=== PATIENT | male | born 1955 | race American Indian/Alaskan Native ===

== ENCOUNTER 2017-12-25 11:04 | Emergency (ER) | payer MEDICAID, OTHER ==
[2017-12-25 11:15] VITALS: RESP 18; TEMP 98.5
[2017-12-25 11:32] VITALS: O2SAT 100
[2017-12-25] MEDS: Albuterol-Ipratrop 3 mg / 0.5 (3 ml) UD IH SCH ×3 (11:45→12:09)
--- NOTE | 2017-12-25 11:55 | ED PDOC ---
Addendum entered and electronically signed by Faith Tovar PA-C 12/25/17 22:06: Addendum Addendum: Pts BP down to 138/94, comfortable with discharge home with instructions to followup. Original Note: Arrival/HPI - General Historian: Patient - History of Present Illness Narrative History of Present Illness (Text): 12/25/17 12:00 62 y/o male with PMH of asthma and COPD presents to the ED c/o wheezing x 5 days. Associated sinus congestion and dry cough worse at night. Pt had a cold but ran out of his inhaler a few days ago. Pt has never been hospitalized or intubated for his asthma. Denies fevers, chills, sputum, chest pain, palpitations, syncope, sore throat, ear pain, abdominal pain, N/V, diarrhea. <Faith Tovar - Last Filed: 12/25/17 13:57> <Shahram Love - Last Filed: 12/25/17 14:56> - General Chief Complaint: Shortness Of Breath Time Seen by Provider: 12/25/17 11:16 Past Medical History - Provider Review Nursing Documentation Reviewed: Yes - Cardiac Hx Cardiac Disorders: No - Pulmonary Hx Asthma: Yes Hx Chronic Obstructive Pulmonary Disease (COPD): Yes - Neurological Hx Neurological Disorder: No - HEENT Hx HEENT Disorder: No - Renal Hx Renal Disorder: No - Endocrine/Metabolic Hx Endocrine Disorders: No - Hematological/Oncological Hx Blood Disorders: No - Integumentary Hx Dermatological Disorder: No - Musculoskeletal/Rheumatological Hx Musculoskeletal Disorders: No - Gastrointestinal Hx Gastrointestinal Disorders: No - Genitourinary/Gynecological Hx Genitourinary Disorders: No - Psychiatric Hx Psychophysiologic Disorder: No Hx Substance Use: No - Surgical History Other/Comment: A lump removal from forehead <Faith Tovar - Last Filed: 12/25/17 13:57> Family/Social History - Physician Review Nursing Documentation Reviewed: Yes Family/Social History: Unknown Family HX Smoking Status: Current Some Days Smoker Hx Alcohol Use: Yes Frequency of alcohol use: Socially Hx Substance Use: No <Faith Tovar - Last Filed: 12/25/17 13:57> Allergies/Home Meds <Faith Tovar - Last Filed: 12/25/17 13:57> <Shahram Love - Last Filed: 12/25/17 14:56> Allergies/Adverse Reactions: Allergies lisinopril Allergy (Verified 12/25/17 11:15) COUGH Home Medications: Home Meds Medication Instructions Recorded Confirmed Albuterol Sulfate [Ventolin Hfa] 2 puff NEB Q6 PRN 12/25/17 12/25/17 Review of Systems - Physician Review All systems were reviewed & negative as marked: Yes - Review of Systems Constitutional: Normal. absent: Fatigue, Fevers, Night Sweats Eyes: Normal. absent: Vision Changes, Photophobia, Eye Pain ENT: Sinus Congestion. absent: Hearing Changes, Tinnitus, Sore Throat, Rhinorrhea, Epistaxis Respiratory: SOB, Cough, Wheezing. absent: Sputum Cardiovascular: Normal. absent: Chest Pain, Palpitations, STRAUSS, Syncope Gastrointestinal: Normal. absent: Abdominal Pain, Stool Changes, Constipation, Diarrhea, Nausea, Vomiting, Appetite Changes Musculoskeletal: Normal. absent: Arthralgias, Back Pain, Neck Pain, Joint Swelling Skin: Normal. absent: Rash Neurological: Normal. absent: Headache, Dizziness, Focal Weakness, Gait Changes Endocrine: Normal. absent: Diaphoresis Hemo/Lymphatic: Normal. absent: Adenopathy Psychiatric: Normal. absent: Anxiety, Depression, Suicidal Ideation <Faith Tovar - Last Filed: 12/25/17 13:57> Physical Exam Vital Signs Reviewed: Yes Vital Signs Temp Pulse Resp BP Pulse Ox 12/25/17 11:24 89 18 100 12/25/17 11:16 18 12/25/17 11:11 98.5 F 83 18 120/73 97 Temperature: Afebrile Blood Pressure: Normal Pulse: Regular Respiratory Rate: Normal Appearance: Positive for: Well-Appearing, Non-Toxic, Uncomfortable (wheezing) Pain Distress: None Mental Status: Positive for: Alert and Oriented X 3 - Systems Exam Head: Present: Atraumatic, Normocephalic Pupils: Present: PERRL Extroacular Muscles: Present: EOMI Conjunctiva: Present: Normal Mouth: Present: Moist Mucous Membranes Pharnyx: Present: Normal. No: ERYTHEMA, EXUDATE, Muffled/Hoarse Voice, Soft Palate/Uvular Edema Nose (External): Present: Atraumatic Nose (Internal): Present: Normal Inspection, No Active Bleeding, Moist Neck: Present: Normal Range of Motion. No: Meningeal Signs, MIDLINE TENDERNESS Respiratory/Chest: Present: Wheezes, Decreased Breath Sounds. No: Respiratory Distress Cardiovascular: Present: Regular Rate and Rhythm, Normal S1, S2. No: Murmurs Back: Present: Normal Inspection. No: Midline Tenderness, Paraspinal Tenderness Upper Extremity: Present: Normal Inspection, Normal ROM, NORMAL PULSES, Neurovascularly Intact. No: Cyanosis, Edema, Tenderness, Swelling, Erythema, Temperature Abnormalties, Deformity Lower Extremity: Present: Normal Inspection. No: Edema Neurological: Present: GCS=15, CN II-XII Intact, Speech Normal Skin: Present: Warm, Dry, Normal Color. No: Rashes Psychiatric: Present: Alert, Oriented x 3, Normal Insight, Normal Concentration, Normal Affect <Faith Tovar - Last Filed: 12/25/17 13:57> Vital Signs Temp Pulse Resp BP Pulse Ox 12/25/17 11:24 89 18 100 12/25/17 11:16 18 12/25/17 11:11 98.5 F 83 18 120/73 97 <Shahram Love - Last Filed: 12/25/17 14:56> Medical Decision Making ED Course and Treatment: 12/25/17 11:56 Initial Plan: --duoneb x 3 --prednisone 60mg PO --CXR --observe, reassess On discharge, pts BP found to be elevated at 191/113 L arm. Pt not cleared for discharge. Will recheck BP in 20minutes. BP continues to be elevated, pt admits to history of HTN. Pt was previously on 0.2mg clonidine daily, prescribed by a clinic in [place], but ran out of the medicine a few weeks ago. Pt is asymptomatic. Denies headache, chest pain, palpitations, dizziness, SOB, abdominal pain. Case discussed with Dr. Love who saw and evaluated pt. Per Dr. Love, will give pt 0.2mg PO Clonidine here and recheck BP with 7 day prescription and instructions to followup with clinic within 2 days. Impression: Asthma Exacerbation Plan: --ventolin inhaler --nebulizer with albuterol --prednisone --clonidine --followup with primary doctor within 2 days --return to ED for new, worsening symptoms Re-evaluation Time: 12:30 Reassessment Condition: Improved - RAD Interpretation Radiology Orders: 12/25/17 11:44 CXR [CHEST TWO VIEWS (PA/LAT)] [RAD] Stat - Medication Orders Current Medication Orders: Albuterol/Ipratropium (Duoneb 3 Mg/0.5 Mg (3 Ml) Ud) 3 ml IH Q15M JENNIFER Stop: 12/25/17 12:16 Discontinued Medications Prednisone (Prednisone Tab) 60 mg PO STAT ONE Stop: 12/25/17 11:26 Last Admin: 12/25/17 11:43 Dose: 60 mg <Faith Tovar - Last Filed: 12/25/17 13:57> - RAD Interpretation Radiology Orders: 12/25/17 11:44 CXR [CHEST TWO VIEWS (PA/LAT)] [RAD] Stat Chest 2 view shows no infiltrate effusion or cardiomegaly. Mc Kay Stitcher: ED Physician - Medication Orders Current Medication Orders: Albuterol/Ipratropium (Duoneb 3 Mg/0.5 Mg (3 Ml) Ud) 3 ml IH Q15M [facility] Stop: 12/25/17 12:16 Last Admin: 12/25/17 12:09 Dose: 3 ml Discontinued Medications Prednisone (Prednisone Tab) 60 mg PO STAT ONE Stop: 12/25/17 11:26 Last Admin: 12/25/17 11:43 Dose: 60 mg <Shahram Love - Last Filed: 12/25/17 14:56> - PA / [employer] OFFICER / Resident Statement / has examined the patient and agrees with the treatment plan. <Sahhram Love - Last Filed: 12/25/17 14:56> Disposition/Present on Arrival - Present on Arrival Any Indicators Present on Arrival: No History of DVT/PE: No History of Uncontrolled Diabetes: No Urinary Catheter: No History of Decub. Ulcer: No History Surgical Site Infection Following: None - Disposition Have Diagnosis and Disposition been Completed?: Yes Disposition Time: 12:30 Patient Plan: Discharge <Faith Tovar - Last Filed: 12/25/17 13:57> <Shahram Love - Last Filed: 12/25/17 14:56> - Disposition Diagnosis: Asthma exacerbation Disposition: HOME/ ROUTINE Condition: IMPROVED Discharge Instructions (ExitCare): Asthma in Adults Additional Instructions: Take prednisone 2 pills every morning for 4 days Use albuterol inhaler 2 puffs or nebulizer every 6 hours as needed for cough Followup with primary doctor within 2 days Return to ED for new or worsening symptoms Prescriptions: RX: Albuterol 0.083% [Albuterol 0.083% Inhal Danita (2.5 mg/3 ml) UD] 3 ml IH Q6H PRN #30 neb PRN Reason: asthma RX: cloNIDine [Catapres] 0.2 mg PO DAILY #7 tab RX: Nebulizer and Compressor [Comp-Air Nebulizer System] 1 each MC Q6H PRN #1 each PRN Reason: asthma RX: predniSONE [predniSONE Tab] 20 mg PO DAILY 4 Days #8 tab RX: Albuterol HFA [Ventolin HFA 90 mcg/actuation (8 g)] 2 puff IH [id number] PRN #60 puff PRN Reason: asthma Referrals: Magi Rodriguez MD [Medical Doctor] - Follow up with primary Forms: [email or web address] ([place] Islander)
--- NOTE | 2017-12-25 12:37 | RAD ---
Date of service: 12/25/2017 HISTORY: cough r/o PNA COMPARISON: No prior. TECHNIQUE: Chest PA and lateral FINDINGS: LUNGS: Hyperinflation, manifestations of COPD. No active pulmonary disease. PLEURA: No significant pleural effusion identified. No pneumothorax apparent. CARDIOVASCULAR: No atherosclerotic calcification present No radiographic findings to suggest acute or significant cardiovascular disease. OSSEOUS STRUCTURES: No significant abnormalities. VISUALIZED UPPER ABDOMEN: Normal. OTHER FINDINGS: None. IMPRESSION: No active disease. No significant interval change compared to the prior examination(s).
[2017-12-25 13:58] VITALS: BP 138/94; PULSE 66
== END 2017-12-25 13:59 | disposition home or self-care (01) ==
LOC: ED 11:04
DX: J45.901 Unspecified asthma with (acute) exacerbation (principal)

== ENCOUNTER 2018-02-11 17:59 | Emergency (ER) | payer MEDICAID ==
[2018-02-11 18:09] VITALS: BMI 20.2
[2018-02-11 18:17] VITALS: TEMP 98.1
--- NOTE | 2018-02-11 18:42 | ED PDOC ---
Arrival/HPI - General Chief Complaint: Shortness Of Breath Time Seen by Provider: 02/11/18 18:02 Historian: Patient - History of Present Illness Narrative History of Present Illness (Text): 02/11/18 18:35 A 62 year old male, whose past medial history includes asthma, presents to the emergency department with a complaint of 3 week duration shortness of breath and coughing. The patient notes that the last time we has on steroids was 3 weeks ago. The patient notes that he is a smoker. The patient denies fevers, chills, headache, dizziness, chest pain, dyspnea on exertion, abdominal pain, nausea, vomiting, diarrhea, back pain, neck pain, urinary/bowel changes, or any other complaint. PMD: Dr. Rae Time/Duration: Other (3 weeks) Symptom Onset: Sudden Symptom Course: Unchanged Activities at Onset: Rest, Light Context: Home Past Medical History - Provider Review Nursing Documentation Reviewed: Yes - Infectious Disease Hx of Infectious Diseases: None - Cardiac Hx Cardiac Disorders: No - Pulmonary Hx Respiratory Disorders: Yes Hx Asthma: Yes Hx Chronic Obstructive Pulmonary Disease (COPD): Yes - Neurological Hx Neurological Disorder: No - HEENT Hx HEENT Disorder: No - Renal Hx Renal Disorder: No - Endocrine/Metabolic Hx Endocrine Disorders: No - Hematological/Oncological Hx Blood Disorders: No - Integumentary Hx Dermatological Disorder: No - Musculoskeletal/Rheumatological Hx Musculoskeletal Disorders: No - Gastrointestinal Hx Gastrointestinal Disorders: No - Genitourinary/Gynecological Hx Genitourinary Disorders: No - Psychiatric Hx Psychophysiologic Disorder: No Hx Substance Use: No - Surgical History Other/Comment: A lump removal from forehead Family/Social History - Physician Review Nursing Documentation Reviewed: Yes Family/Social History: No Known Family HX Smoking Status: Current Some Days Smoker Hx Alcohol Use: Yes Hx Substance Use: No Allergies/Home Meds Allergies/Adverse Reactions: Allergies banana Allergy (Verified 02/11/18 18:21) ANAPHYLAXIS lisinopril Allergy (Verified 12/25/17 11:15) COUGH Home Medications: Home Meds Medication Instructions Recorded Confirmed Albuterol Sulfate [Ventolin Hfa] 2 puff NEB Q6 PRN 12/25/17 02/11/18 Review of Systems - Physician Review All systems were reviewed & negative as marked: Yes - Review of Systems Constitutional: absent: Fevers Respiratory: SOB, Cough Cardiovascular: absent: Chest Pain, STRAUSS Gastrointestinal: absent: Abdominal Pain, Stool Changes, Diarrhea, Nausea, Vomiting Genitourinary Male: absent: Urinary Output Changes Musculoskeletal: absent: Back Pain, Neck Pain Neurological: absent: Headache, Dizziness Physical Exam Vital Signs Reviewed: Yes Vital Signs Temp Pulse Resp BP Pulse Ox 02/11/18 18:16 98.1 F 102 H 22 187/122 H 93 L Temperature: Afebrile Blood Pressure: Hypertensive Pulse: Tachycardic Respiratory Rate: Normal Appearance: Positive for: Well-Appearing, Non-Toxic, Comfortable Pain Distress: None Mental Status: Positive for: Alert and Oriented X 3 - Systems Exam Head: Present: Atraumatic, Normocephalic Pupils: Present: PERRL Extroacular Muscles: Present: EOMI Conjunctiva: Present: Normal Mouth: Present: Moist Mucous Membranes Neck: Present: Normal Range of Motion Respiratory/Chest: Present: Clear to Auscultation, Good Air Exchange, Wheezes (Inspiratory and expiratory wheezeing in the prolonged expiratory phase. Wheezes throughout.), Other (Patient speaking full sentences. ). No: Respiratory Distress, Accessory Muscle Use Cardiovascular: Present: Regular Rate and Rhythm, Normal S1, S2. No: Murmurs Abdomen: No: Tenderness, Distention, Peritoneal Signs Back: Present: Normal Inspection Upper Extremity: Present: Normal Inspection. No: Cyanosis, Edema Lower Extremity: Present: Normal Inspection. No: Edema Neurological: Present: GCS=15, CN II-XII Intact, Speech Normal Skin: Present: Warm, Dry, Normal Color. No: Rashes Psychiatric: Present: Alert, Oriented x 3, Normal Insight, Normal Concentration Medical Decision Making ED Course and Treatment: 02/11/18 18:44 Impression: A 62 year old female male presents to the emergency department with a complaint of 3 week duration shortness of breath and coughing. Plan: -- EKG -- Chest X-ray -- Labs -- Duoneb and SOLU- Medrol -- Reassess and disposition Prior Visits: Notes and results from previous visits were reviewed. Progress Notes: EKG: Ordered, reviewed, and independently interpreted the EKG. Rate : 108 BPM Rhythm : Sinus tachycardia Interpretation : Normal interval. Normal axis. No ST elevations or depressions. 02/11/18 19:38: Chest X-ray read and interpreted by me shows NAD 02/11/18 19:48: Re- examined patient and he notes that he has not been taking Clonidine 0.2 for the past 3 weeks. Patient is using accessory muscles, supra clavicular. Lungs have not improved and notes he does not feel better. Patient's oxygen saturation is normal. Admission was advised, but patient wants to leave against medical advice. Prescriptions for prednisone and refill of Clonidine provided to patient. 02/11/18 20:50 Leaving Against Medical Advice (AMA): The patient is choosing to leave against medical advice. I have personally explained to the patient that choosing to do so may result in permanent bodily harm or . I have discussed at great length that without further evaluation and monitoring there may be unforeseen circumstances and/or deterioration causing permanent bodily harm or as a result of their choice. The patient is alert, oriented, and shows the mental capacity to make clear decisions regarding the patients health care at this time. The patient continues to wish to leave against medical advice. In light of the patients decision to leave against medical advice, follow-up has been arranged and the patient is aware of the importance to following up as instructed. The patient has been advised that they should return to the emergency room immediately if they change their mind at any time, or if their condition begins to change or worsen in any way. - Lab Interpretations I have reviewed the lab results: Yes - EKG Interpretation Interpreted by ED Physician: Yes Type: 12 lead EKG - Scribe Statement The provider has reviewed the documentation as recorded by the Susannahibanalilia Abreu Provider Scribe Attestation: All medical record entries made by the Scribe were at my direction and personally dictated by me. I have reviewed the chart and agree that the record accurately reflects my personal performance of the history, physical exam, medical decision making, and the department course for this patient. I have also personally directed, reviewed, and agree with the discharge instructions and d isposition. Disposition/Present on Arrival - Present on Arrival Any Indicators Present on Arrival: No History of DVT/PE: No History of Uncontrolled Diabetes: No Urinary Catheter: No History of Decub. Ulcer: No History Surgical Site Infection Following: None - Disposition Have Diagnosis and Disposition been Completed?: Yes Diagnosis: Asthma exacerbation, Noncompliance with medication regimen, Medication refill, Hypertension, Left against medical advice Disposition: AGAINST MEDICAL ADVICE Disposition Time: 20:43 Patient Plan: Discharge (AMA) Condition: STABLE Discharge Instructions (ExitCare): Asthma, Adult (DC), High Blood Pressure (DC), Leaving Against Medical Advice Additional Instructions: MARCO MARVIN, thank you for letting us take care of you today. Your provider was Nichelle Posada MD and you were treated for ASTHMA/SOB. The emergency medical care you received today was directed at your acute symptoms. If you were prescribed any medication, please fill it and take as directed. It may take several days for your symptoms to resolve. Return to the Emergency Department if your symptoms worsen, do not improve, or if you have any other problems. Please contact your doctor tomorrow for a follow up visit. Bring any paperwork you were given at discharge with you along with any medications you are taking to your follow up visit. Our treatment cannot replace ongoing medical care by a primary care provider outside of the emergency department. Thank you for allowing the [facility] team to be part of your care today. If you had an X-Ray or CT scan: A Radiologist will review the ED reading if any change in treatment is needed we will contact you. If you had a blood, urine, or wound culture: It will take several days for the results, if any change in treatment is needed we will contact you. If you had an STI test: It will take 48 hours for the results. Please call after 1 week if you have not heard back. Prescriptions: RX: cloNIDine [Catapres] 0.2 mg PO DAILY #14 tab predniSONE [Prednisone] 40 mg PO DAILY #10 tab Forms: [employer] ([place]ian)
[2018-02-11] MEDS: Albuterol-Ipratrop 3 mg / 0.5 (3 ml) UD IH SCH ×3 (18:44→19:29)
[2018-02-11 18:58] LABS: BASO # 0.07 K/mm3 (0.0-2.0); BASO % 1.2 % (0.0-3.0); EOS # 0.6 (0.0-0.7); EOS % 9.1 % (1.5-5.0); GRAN # 2.5 (1.4-6.5); GRAN % 41.2 % (50.0-68.0); HEMOGLOBIN 13.9 g/dL (14.0-18.0); LYMPH # 2.4 (1.2-3.4); LYMPH % 40.2 % (22.0-35.0); MEAN CELL VOLUME 89.2 fl (80.0-105.0); MEAN CORPUSCULAR HEMOGLOBIN 30.1 pg (25.0-35.0); MEAN CORPUSCULAR HGB CONC 33.7 g/dl (31.0-37.0); MEAN PLATELET VOLUME 9.1 fl (7.0-11.0); MONO # 0.5 (0.1-0.6); MONO % 8.3 % (1.0-6.0); RBC 4.62 10^6/uL (3.5-6.1); RED CELL DISTRIBUTION WIDTH 12.4 % (11.5-14.5); WHITE BLOOD COUNT 6.1 10^3/uL (4.5-11.0)
[2018-02-11 19:09] LABS: BLOOD UREA NITROGEN 18 mg/dL (7-21); GFR NON-AFRICAN AMERICAN > 60
[2018-02-11 19:20] LABS: TROPONIN I < 0.01 ng/mL
[2018-02-12 05:25] VITALS: BP 169/100; PULSE 95; RESP 18; O2SAT 100
--- NOTE | 2018-02-12 07:58 | RAD ---
Date of service: 02/11/2018 HISTORY: sob COMPARISON: 12/25/2017 FINDINGS: LUNGS: There is a minimal patchy infiltrate in the left upper lobe superimposed over the 5th rib. The lungs are otherwise clear PLEURA: No significant pleural effusion identified, no pneumothorax apparent. CARDIOVASCULAR: No aortic atherosclerotic calcification present. Normal cardiac size. No pulmonary vascular congestion. OSSEOUS STRUCTURES: No significant abnormalities. VISUALIZED UPPER ABDOMEN: Normal. OTHER FINDINGS: None. IMPRESSION: There is a minimal patchy infiltrate in the left upper lobe superimposed over the 5th rib. The lungs are otherwise clear
--- NOTE | 2018-02-12 09:56 | CARD ---
APPROVED REPORT Date of service: 02/11/2018 EKG Measurement Heart [id number] <Conclusion> Sinus tachycardia Otherwise normal ECG
== END 2018-02-11 20:49 | disposition left against medical advice (07) ==
LOC: ED 17:59
DX: J45.901 Unspecified asthma with (acute) exacerbation (principal); Z91.14 Patient's other noncompliance with medication regimen; Z76.0 Encounter for issue of repeat prescription; I10 Essential (primary) hypertension; F17.210 Nicotine dependence, cigarettes, uncomplicated
CPT/HCPCS: 71045; 80048; 82550; 83615; 83735; 84484; 85025; 93005; 94640; 96374; 99284; J2930

== ENCOUNTER 2018-03-25 05:06 | Inpatient (IN) | payer MEDICAID ==
--- NOTE | 2018-03-25 05:19 | EDPD ---
HPI Stroke - General Time Seen by Provider: 03/25/18 05:08 Historian: Patient, Family, EMS - History of Present Illness Narrative History of Present Illness (Free Text): 03/25/18 05:11 Earl Donis is a 62 year old male, whose past medical history includes asthma and hypertension, who presents to the Emergency department brought in by EMS for seizure-like activity as witnessed by family and EMS today. EMS reports seizure-like activity lasted for approximately 1-2 minutes. Family present in Emergency department states patient was complaining of mild headache this evening. Family reports no known history of fever, report patient was not complaining of anything else and deny any recent travel. Limited HPI and ROS secondary to patient's altered mental status. Date:: 03/25/18 Time: 05:11 Onset:: Hours Timing: Currently Symptomatic Context: Other Associated Symptoms: other (seizure) Exacerbated by: Nothing Relieved by: Nothing - Location Location: Mental Status rTPA Inclusion/Exclusion - Inclusion Criteria for Altepase Patient is 18 years or Older: Yes The Clinical Diagnosis of Ischemic Stroke That is Causing a Potentially Disa carl Neurological Deficit: No Time of Onset is Well Established to be Less Than 270 Minute Before Treatment Would Begin: Yes Risk/Benefit Discussed With Patient/Family Member Present: No Past Medical History - Provider Review Nursing Documentation Reviewed: Yes - Infectious Disease Hx of Infectious Diseases: None - Cardiac Hx Cardiac Disorders: No - Pulmonary Hx Respiratory Disorders: Yes Hx Asthma: Yes Hx Chronic Obstructive Pulmonary Disease (COPD): Yes - Neurological Hx Neurological Disorder: No - HEENT Hx HEENT Disorder: No - Renal Hx Renal Disorder: No - Endocrine/Metabolic Hx Endocrine Disorders: No - Hematological/Oncological Hx Blood Disorders: No - Integumentary Hx Dermatological Disorder: No - Musculoskeletal/Rheumatological Hx Musculoskeletal Disorders: No - Gastrointestinal Hx Gastrointestinal Disorders: No - Genitourinary/Gynecological Hx Genitourinary Disorders: No - Psychiatric Hx Psychophysiologic Disorder: No Hx Substance Use: No - Surgical History Other/Comment: A lump removal from forehead Family/Social History - Family/Social History Family History: Non-Contributory - Review Nursing documentation reviewed.: Yes Allergies/Home Meds Allergies/Adverse Reactions: Allergies banana Allergy (Verified 02/11/18 18:21) ANAPHYLAXIS lisinopril Allergy (Verified 12/25/17 11:15) COUGH Home Medications: Home Meds Medication Instructions Recorded Confirmed Albuterol Sulfate [Ventolin Hfa] 2 puff NEB Q6 PRN 12/25/17 03/25/18 Benzonatate [Tessalon Perles] 100 mg PO Q8H 03/25/18 03/25/18 Ibuprofen [Motrin Tab] 600 mg PO Q8H 03/25/18 03/25/18 Pantoprazole Sodium 40 mg PO DAILY 03/25/18 03/25/18 Penicillin VK [Penicillin VK Tab] 500 mg PO Q6H 03/25/18 03/25/18 amLODIPine [Norvasc] 5 mg PO DAILY 03/25/18 03/25/18 cloNIDine [Catapres] 0.2 mg PO BID 03/25/18 03/25/18 predniSONE [Prednisone] 10 mg PO DAILY 03/25/18 03/25/18 Review of Systems - Physician Review All systems were reviewed & negative as marked: Yes - Review of Systems Constitutional: Normal. absent: Fevers Eyes: Normal ENT: Normal Respiratory: Normal Cardiovascular: Normal Gastrointestinal: Normal Genitourinary Male: Normal Musculoskeletal: Normal Skin: Normal Neurological: Normal Endocrine: Normal Hemo/Lymphatic: Normal Psychiatric: Normal ED Stroke Physical Exam Vital Signs Reviewed: Yes Temperature: Afebrile Blood Pressure: Normal Pulse: Tachycardic Respiratory Rate: Normal Appearance: Positive for: Other (Moving around on stretcher) Mental Status: Positive for: other (responsive to painful stimuli) - Systems Exam Head: Present: Atraumatic, Normocephalic Pupils: Present: PERRL Extroacular Muscles: Present: EOMI Conjunctiva: Present: Normal Mouth: Present: Moist Mucous Membranes Neck: Present: Normal Range of Motion Respiratory/Chest: Present: Clear to Auscultation, Good Air Exchange. No: Respiratory Distress, Accessory Muscle Use Cardiovascular: Present: Normal S1, S2, Tachycardic. No: Murmurs Abdomen: Present: Normal Bowel Sounds. No: Tenderness, Distention, Peritoneal Signs Back: Present: GCS, CN, SP Upper Extremity: Present: Normal Inspection. No: Cyanosis, Edema Lower Extremity: Present: Normal Inspection. No: Edema Neurologic: Present: Motor Func Grossly Intact (Reactive to painful stimuli, moving around on stretcher), Other (Limited due to pt cooperation) Skin: Present: Warm, Dry, Normal Color. No: Rashes Lymphatic: Present: OX3, NI, NC Psychiatric: Present: Alert, Oriented x 3, Normal Insight, Normal Concentration Medical Decision Making ED Course and Treatment: 03/25/18 05:11 Impression: 62 year old male brought in for seizure, possible stroke. Plan: -- CT Head -- CTA Head/Neck -- Labs, blood type and screen, troponin, lipid paneelblood type and screen -- Urinalysis, urine cultures -- IV fluids -- Ativan -- Reassess and disposition Prior Visits: Notes and results from previous visits were reviewed. Progress Notes: Pt seen on arrival to Emergency department. Code stroke called. Pt taken to CT scan. 03/25/18 05:45 Reviewed radiology, Chest X-ray shows no acute processes. CT Head: There is normal configuration of sella turcica. There are no intra or extra- axial collections. There is no mass effect or midline shift. There is no evidence of hematoma formation. No hydrocephalus is present. The ventricles are symmetrical. No abnormal calcifications are present. There is diffuse age-appropriate cerebellar and cerebral atrophy with propo rtionally dilated ventricles and cortical sulci. There are bilateral periventricular and subcortical white matter hypolucencies compatible with mild chronic microvascular disease. Otherwise, no significant focal abnormalities are seen either in the posterior fossa or supratentorial compartment. IMPRESSION: 1. Age-appropriate cerebellar and cerebral atrophy. 2. Mild chronic microvascular disease. 3. No evidence of acute intracranial pathology. Electronically signed on Mar 25, 2018 5:43:17 AM EST by: Anoop Baer M.D., Certified by ABR, MSK, Neuroradiology 03/25/18 05:[address] Covarrubias, neurologist financial services consultant, who recommends pt receive 1g of Keppra and MRI of the Brain. 03/25/18 06:[address] Lanny Marquez, governor assembler hydraulic, and Dr. Posada, medical reimbursement specialist financial services consultant, who will endorse case to oncoming day-shift team 03/25/18 06:27 Reviewed EKG, sinus tachycardia at [address]-segment elevations or depressions, no T-wave inversions, normal intervals. - Critical Care Critical Care Minutes: 45 minutes - Lab Interpretations I have reviewed the lab results: Yes - RAD Interpretation Passenger Train Braker: ED Physician, Radiologist - EKG Interpretation Interpreted by ED Physician: Yes Type: 12 lead EKG - Scribe Statement The provider has reviewed the documentation as recorded by the Nadine Webster Provider Scribe Attestation: All medical record entries made by the Scribe were at my direction and personally dictated by me. I have reviewed the chart and agree that the record accurately reflects my personal performance of the history, physical exam, medical decision making, and the department course for this patient. I have also personally directed, reviewed, and agree with the discharge instructions and disposition. NIHSS Scale ([place]) Time Performed: 05:11 - How Severe is the Stoke Baseline Level of Consciousness: 2=Obtunded (post seizure-like activity) LOC to Questions: 2=Neither correct LOC to commands: 1=Obeys one correctly Best Gaze: 0=Normal Visual: 0=No visual loss Facial: 0=Normal Motor Arm - Left: 0=No drift Motor Arm - Right: 0=No drift Motor Leg - Left: 0=No drift Motor Leg - Right: 0=No drift Limb Ataxia: 0=Absent Sensory: 0=Normal Best Language: 0=No aphasia Dysarthia: 0=Normal articulation Extinction & Inattention (Neglect): 0=Normal, no object Score: 5 Risk Level: Mod Stroke Risk Disposition/Present on Arrival - Present on Arrival Any Indicators Present on Arrival: Yes History of DVT/PE: No History of Uncontrolled Diabetes: No Urinary Catheter: No History of Decub. Ulcer: No History Surgical Site Infection Following: None - Disposition Have Diagnosis and Disposition been Completed?: Yes Diagnosis: DKA (diabetic ketoacidoses), New onset seizure, Altered mental status Disposition: HOSPITALIZED Disposition Time: 06:45 Condition: SERIOUS
[2018-03-25 05:55] LABS: BASO # 0.02 K/mm3 (0.0-2.0); BASO % 0.2 % (0.0-3.0); EOS # 0.1 (0.0-0.7); EOS % 0.6 % (1.5-5.0); GRAN # 8.07 (1.4-6.5); GRAN % 72.3 % (50.0-68.0); HEMOGLOBIN 13.6 g/dL (14.0-18.0); LYMPH # 2.3 (1.2-3.4); LYMPH % 20.8 % (22.0-35.0); MEAN CELL VOLUME 88.8 fl (80.0-105.0); MEAN CORPUSCULAR HEMOGLOBIN 29.8 pg (25.0-35.0); MEAN CORPUSCULAR HGB CONC 33.5 g/dl (31.0-37.0); MEAN PLATELET VOLUME 10.1 fl (7.0-11.0); MONO # 0.7 (0.1-0.6); MONO % 6.1 % (1.0-6.0); RBC 4.57 10^6/uL (3.5-6.1); RED CELL DISTRIBUTION WIDTH 12.1 % (11.5-14.5); WHITE BLOOD COUNT 11.2 10^3/uL (4.5-11.0)
[2018-03-25] MEDS ORDERED: levETIRAcetam 1000mg/100ml NS 100 ML IV ONE (05:56)
[2018-03-25 05:58] LABS: INR 0.85; PARTIAL THROMBOPLASTIN TIME 26.9 Seconds (25.1-36.5)
[2018-03-25 06:01] LABS: VENOUS BLOOD GAS BASE EXCESS -7.4 mmol/L (0.0-2.0); VENOUS BLOOD GAS PO2 89 mm/Hg (30-55); VENOUS BLOOD PH 7.31 (7.32-7.43)
[2018-03-25] MEDS: Sodium Chloride 0.9% 1,000 ML IV SCH ×3 (06:06→15:02)
[2018-03-25 06:11] LABS: PROTHROMBIN TIME 9.8 SECONDS (9.4-12.5)
[2018-03-25 06:22] LABS: LDL CHOLESTEROL 72 mg/dL (0-129); TROPONIN I < 0.01 ng/mL
[2018-03-25 06:35] LABS: ALB/GLOB RATIO 1.3 (1.1-1.8); ALBUMIN 4.6 g/dL (3.0-4.8); ALT/SGPT 42 U/L (7-56); AST/SGOT 52 U/L (17-59); BLOOD UREA NITROGEN 22 mg/dL (7-21); CALCIUM 10.1 mg/dL (8.4-10.5); GFR NON-AFRICAN AMERICAN 52; HDL CHOLESTEROL 132 mg/dL (29-60)
[2018-03-25 06:40] LABS: URINE BILIRUBIN NEGATIVE (NEGATIVE); URINE BLOOD TRACE-INTACT (NEGATIVE); URINE GLUCOSE (UA) >=1000 mg/dL (NEGATIVE); URINE LEUKOCYTE ESTERASE NEGATIVE Leu/uL (NEGATIVE); URINE PROTEIN TRACE mg/dL (<30 mg/dL); URINE UROBILINOGEN 0.2 E.U./dL (<1 E.U./dL)
[2018-03-25] MEDS ORDERED: Insulin Regular 100 UNITS in Sodium Chloride 0.9% 99 ML IV PRN (06:41)
[2018-03-25 06:51] LABS: URINE APPEARANCE CLEAR (CLEAR); URINE COLOR YELLOW (YELLOW)
[2018-03-25 07:00] LABS: URINE AMORPHOUS SEDIMENT MODERATE /hpf; URINE BACTERIA OCC /hpf; URINE EPITHELIAL CELLS 0 - 2 /hpf (0-5); URINE RBC 0 - 2 /hpf (0-2); URINE WBC 0 - 2 /hpf (0-6)
[2018-03-25] MEDS ORDERED: Iodixanol 320 MG/ML 100 ML BOTTLE IV ONE (07:30)
[2018-03-25 07:43] LABS: BARBITURATES, UR NEGATIVE (NEGATIVE); BENZODIAZEPINES, UR NEGATIVE (NEGATIVE); OPIATES, UR POSITIVE (NEGATIVE); PHENCYCLIDINE, UR NEGATIVE (NEGATIVE)
--- NOTE | 2018-03-25 08:11 | CP.PCM.CON ---
<Orion Martinez - Last Filed: 03/25/18 10:09> History of Present Illness - History of Present Illness History of Present Illness: Orion Martinez Internal Medicine Resident-Consult Note Note on Behalf of Critical Care Team Subjective: CC: Altered mental status HPI: Patient is a 62 year old male with a reported past medical history of COPD, asthma, tobacco abuse, and hypertension who was admitted to the hospital for altered mental status. As per records the patient was brought in by EMS after experiencing seizure like activity. Patient was diagnosed with diabetic ketoacidosis, started on an insulin drip, and transferred to the ICU for further management. Patient seen and examined at bedside. No acute events since admission. Further subjective data cannot be ascertained at this time secondary to altered mental status. 12 Point ROS cannot be ascertained at this time due to AMS Past medical history: as per records COPD, asthma, tobacco abuse, and hypertension Past surgical history: unknown, cannot be ascertained due to altered mental status Allergies: as per records banana, lisinopril Social History: unknown, cannot be ascertained due to altered mental status Family history: unknown, cannot be ascertained due to altered mental status Medications: unknown, cannot be ascertained due to altered mental status Physical Examination: - Constitutional Appears: No acute distress - Head Exam Head Exam: ATRAUMATIC, NORMAL INSPECTION, NORMOCEPHALIC - Eye Exam Eye Exam: pupils are dilated and sluggish in response to light - ENT Exam ENT Exam: Mucous Membranes Moist - Respiratory Exam Respiratory Exam: CTA bilaterally - Cardiovascular Exam Cardiovascular Exam: RRR, REGULAR RHYTHM - GI/Abdominal Exam GI & Abdominal Exam: Normal Bowel Sounds, Soft - Extremities Exam Extremities exam: no clubbing, no cyanosis - Neurological Exam Neurological exam: not awake, not alert, does not respond to verbal or painful stimuli, does not follow commands, moves extremities spontaneously - Skin Skin Exam: warm, dry Assessment and Plan: Patient is a 62 year old male with a reported past medical history of COPD, asthma, tobacco abuse, and hypertension who was admitted to the hospital for altered mental status. As per records the patient was brought in by EMS after experiencing seizure like activity. In the emergency department the patient was given 2mg of lorazepam x 2, keppra 1000mg x 1. Patient was found to elevated blood glucose of 494 in the setting of a gapped metabolic acidosis and positive ketones on the urinanalysis. Patient was diagnosed with diabetic ketoacidosis, started on an insulin drip, and transferred to the ICU for further management. Neuro: Seizures - 03/25/2018 CT head without contrast-1. Age-appropriate cerebellar and cerebral atrophy 2. Mild chronic microvascular disease. 3. No evidence of acute intracranial pathology. - 03/25/2018 CTA Head/Neck- ordered and official read pending - 03/25/2018 MRI brain without contrast- ordered and pending - 03/25/2018 VEEG ordered and pending - recommend speech and swallow evaluation - recommend PT/OT - neuro recommended- appreciate recommendations Cardiovascular Hx of HTN, HPL - confirm home catapres and norvasc prior to restarting - recommend starting lipitor 20mg PO daily when clinically improved - keep MAP > 65 Pulmonary Hx of COPD, Asthma - continue with duonebs q2 prn SOB - SaO2 > 90% Endocrinology Diabetic Ketoacidosis, Gapped Metabolic - continue insulin drip at 3mls/hr - bmp q4h - fingersticks q1h - titrate insulin drip per protocol - endocrinology consulted- appreciate recommendations Lactic Acidosis - secondary to seizure like activity - bolus 2 liters of NS - increased IVF NS to 150cc/hr - repeat VBG with shock panel ordered and pending Renal SETH - creatinine increased by 0.3 from baseline - likely pre-renal secondary to dehydrated state from DKA - increased IVF NS to 150cc/hr - monitor closely via CMP Heme DVT Prophylaxis - Subq heparin 5000units q8h GI GI Prophylaxis - not clinically indicated Patient seen, case reviewed with, and plan approved by attending physician, Dr. Enriquez Past Patient History - Infectious Disease Hx of Infectious Diseases: None - Past Social History Smoking Status: Current Some Days Smoker - CARDIAC Hx Cardiac Disorders: No - PULMONARY Hx Respiratory Disorders: Yes Hx Asthma: Yes Hx Chronic Obstructive Pulmonary Disease (COPD): Yes - NEUROLOGICAL Hx Neurological Disorder: No - HEENT Hx HEENT Problems: No - RENAL Hx Chronic Kidney Disease: No - ENDOCRINE/METABOLIC Hx Endocrine Disorders: No - HEMATOLOGICAL/ONCOLOGICAL Hx Blood Disorders: No - INTEGUMENTARY Hx Dermatological Problems: No - MUSCULOSKELETAL/RHEUMATOLOGICAL Hx Musculoskeletal Disorders: No - GASTROINTESTINAL Hx Gastrointestinal Disorders: No - GENITOURINARY/GYNECOLOGICAL Hx Genitourinary Disorders: No - PSYCHIATRIC Hx Psychophysiologic Disorder: No Hx Substance Use: No - SURGICAL HISTORY Other/Comment: A lump removal from forehead Meds Allergies/Adverse Reactions: Allergies Allergy/AdvReac Type Severity Reaction Status Date / Time banana Allergy ANAPHYLAXIS Verified 02/11/18 18:21 lisinopril Allergy COUGH Verified 12/25/17 11:15 - Medications Medications: Current Medications Sodium Chloride (Sodium Chloride 0.9%) 1,000 mls @ 100 mls/hr IV .Q10H JENNIFER Last Admin: 03/25/18 06:06 Dose: 100 mls/hr Insulin Human Regular 100 (units/ Sodium Chloride) 100 mls @ 3 mls/hr IV .Q24H PRN; Protocol PRN Reason: TITRATE PER MD ORDER Results - Vital Signs Recent Vital Signs: Last Vital Signs Temp 97.5 F L 03/25/18 05:55 Pulse 90 03/25/18 07:23 Resp 16 03/25/18 07:23 BP 121/74 03/25/18 07:23 Pulse Ox 100 03/25/18 07:23 - Labs Result Diagrams: 03/25/18 05:40 03/25/18 09:30 Labs: Laboratory Results - last 24 hr 03/25/18 03/25/18 03/25/18 05:40 05:40 05:40 WBC 11.2 H D RBC 4.57 Hgb 13.6 L Hct 40.6 L MCV 88.8 MCH 29.8 MCHC 33.5 RDW 12.1 Plt Count 329 MPV 10.1 Gran % 72.3 H Lymph % (Auto) 20.8 L [place] % (Auto) 6.1 H Eos % (Auto) 0.6 L Baso % (Auto) 0.2 Gran # 8.07 H Lymph # (Auto) 2.3 [place] # (Auto) 0.7 H Eos # (Auto) 0.1 Baso # (Auto) 0.02 PT 9.8 INR 0.85 APTT 26.9 pO2 VBG pH VBG pCO2 VBG HCO3 VBG Total CO2 VBG O2 Sat (Calc) VBG Base Excess VBG Potassium Sodium 137 Chloride 94 L Glucose Lactate FiO2 Crit Value Called To Crit Value Called By Blood Gas Notified Time Potassium 4.4 Carbon Dioxide 19 L Anion Gap 29 H BUN 22 H Creatinine 1.4 Est GFR ( Amer) > 60 Est GFR (Non-Af Amer) 52 Random Glucose 481 H* D Calcium 10.1 Total Bilirubin 0.4 AST 52 ALT 42 Alkaline Phosphatase 163 H Troponin I < 0.01 Total Protein 8.0 Albumin 4.6 Globulin 3.4 Albumin/Globulin Ratio 1.3 Triglycerides 195 H Cholesterol 237 H LDL Cholesterol Direct 72 HDL Cholesterol 132 H Venous Blood Potassium Urine Color Urine Appearance Urine pH Ur Specific [place] Urine Protein Urine Glucose (UA) Urine Ketones Urine Blood Urine Nitrate Urine Bilirubin Urine Urobilinogen Ur Leukocyte Esterase Urine RBC Urine WBC Ur Epithelial Cells Amorphous Sediment Urine Bacteria Urine Opiates Screen Urine Methadone Screen Ur Barbiturates Screen Ur Phencyclidine Scrn Ur Amphetamines Screen U Benzodiazepines Scrn U Oth Cocaine Metabols U Cannabinoids Screen BBK History Checked 03/25/18 03/25/18 03/25/18 05:40 06:05 06:05 WBC RBC Hgb Hct MCV MCH MCHC RDW Plt Count MPV Gran % Lymph % (Auto) [place] % (Auto) Eos % (Auto) Baso % (Auto) Gran # Lymph # (Auto) [place] # (Auto) Eos # (Auto) Baso # (Auto) PT INR APTT pO2 89 H VBG pH 7.31 L VBG pCO2 36.0 L VBG HCO3 18.1 L VBG Total CO2 19.2 L VBG O2 Sat (Calc) 98.6 H VBG Base Excess -7.4 L VBG Potassium 4.3 Sodium 136.0 Chloride 91.0 L Glucose 494 H* Lactate 15.4 H* FiO2 21.0 Crit Value Called To Alexandra michaels [employer] Crit Value Called By Babita Blood Gas Notified Time 600 Potassium Carbon Dioxide Anion Gap BUN Creatinine Est GFR ( Amer) Est GFR (Non-Af Amer) Random Glucose Calcium Total Bilirubin AST ALT Alkaline Phosphatase Troponin I Total Protein Albumin Globulin Albumin/Globulin Ratio Triglycerides Cholesterol LDL Cholesterol Direct HDL Cholesterol Venous Blood Potassium 4.3 Urine Color Yellow Urine Appearance Clear Urine pH 6.0 Ur Specific [place] >= 1.030 Urine Protein Trace H Urine Glucose (UA) >=1000 Urine Ketones Trace H Urine Blood Trace-intact H Urine Nitrate Negative Urine Bilirubin Negative Urine Urobilinogen 0.2 Ur Leukocyte Esterase Negative Urine RBC 0 - 2 Urine WBC 0 - 2 Ur Epithelial Cells 0 - 2 Amorphous Sediment Moderate Urine Bacteria Occ Urine Opiates Screen Positive H Urine Methadone Screen Negative Ur Barbiturates Screen Negative Ur Phencyclidine Scrn Negative Ur Amphetamines Screen Negative U Benzodiazepines Scrn Negative U Oth Cocaine Metabols Negative U Cannabinoids Screen Negative BBK History Checked 03/25/18 06:49 WBC RBC Hgb Hct MCV MCH MCHC RDW Plt Count MPV Gran % Lymph % (Auto) [place] % (Auto) Eos % (Auto) Baso % (Auto) Gran # Lymph # (Auto) [place] # (Auto) Eos # (Auto) Baso # (Auto) PT INR APTT pO2 VBG pH VBG pCO2 VBG HCO3 VBG Total CO2 VBG O2 Sat (Calc) VBG Base Excess VBG Potassium Sodium Chloride Glucose Lactate FiO2 Crit Value Called To Crit Value Called By Blood Gas Notified Time Potassium Carbon Dioxide Anion Gap BUN Creatinine Est GFR ( Amer) Est GFR (Non-Af Amer) Random Glucose Calcium Total Bilirubin AST ALT Alkaline Phosphatase Troponin I Total Protein Albumin Globulin Albumin/Globulin Ratio Triglycerides Cholesterol LDL Cholesterol Direct HDL Cholesterol Venous Blood Potassium Urine Color Urine Appearance Urine pH Ur Specific [place] Urine Protein Urine Glucose (UA) Urine Ketones Urine Blood Urine Nitrate Urine Bilirubin Urine Urobilinogen Ur Leukocyte Esterase Urine RBC Urine WBC Ur Epithelial Cells Amorphous Sediment Urine Bacteria Urine Opiates Screen Urine Methadone Screen Ur Barbiturates Screen Ur Phencyclidine Scrn Ur Amphetamines Screen U Benzodiazepines Scrn U Oth Cocaine Metabols U Cannabinoids Screen BBK History Checked No verified bt <Julio Enriquez - Last Filed: 03/25/18 10:57> Meds - Medications Medications: Current Medications Albuterol/Ipratropium (Duoneb 3 Mg/0.5 Mg (3 Ml) Ud) 3 ml IH Q2H PRN PRN Reason: Shortness of Breath Heparin Sodium (Porcine) (Heparin) 5,000 units SC Q8 [facility]; Protocol Insulin Human Regular 100 (units/ Sodium Chloride) 100 mls @ 3 mls/hr IV .Q24H PRN; Protocol PRN Reason: TITRATE PER MD ORDER Last Titration: 03/25/18 09:30 Dose: 2 units/hr, 2 mls/hr Sodium Chloride (Sodium Chloride 0.9%) 1,000 mls @ 150 mls/hr IV .Q6H40M [facility] Results - Vital Signs Recent Vital Signs: Last Vital Signs Temp 97.5 F L 03/25/18 05:55 Pulse 90 03/25/18 07:23 Resp 16 03/25/18 07:23 BP 121/74 03/25/18 07:23 Pulse Ox 100 03/25/18 07:23 - Labs Result Diagrams: 03/25/18 05:40 03/25/18 09:30 Labs: Laboratory Results - last 24 hr 03/25/18 03/25/18 03/25/18 05:40 05:40 05:40 WBC 11.2 H D RBC 4.57 Hgb 13.6 L Hct 40.6 L MCV 88.8 MCH 29.8 MCHC 33.5 RDW 12.1 Plt Count 329 MPV 10.1 Gran % 72.3 H Lymph % (Auto) 20.8 L [place] % (Auto) 6.1 H Eos % (Auto) 0.6 L Baso % (Auto) 0.2 Gran # 8.07 H Lymph # (Auto) 2.3 [place] # (Auto) 0.7 H Eos # (Auto) 0.1 Baso # (Auto) 0.02 PT 9.8 INR 0.85 APTT 26.9 pO2 VBG pH VBG pCO2 VBG HCO3 VBG Total CO2 VBG O2 Sat (Calc) VBG Base Excess VBG Potassium Sodium 137 Chloride 94 L Glucose Lactate FiO2 Crit Value Called To Crit Value Called By Blood Gas Notified Time Potassium 4.4 Carbon Dioxide 19 L Anion Gap 29 H BUN 22 H Creatinine 1.4 Est GFR ( Amer) > 60 Est GFR (Non-Af Amer) 52 POC Glucose (mg/dL) Random Glucose 481 H* D Calcium 10.1 Total Bilirubin 0.4 AST 52 ALT 42 Alkaline Phosphatase 163 H Total Creatine Kinase Cancelled Troponin I < 0.01 Total Protein 8.0 Albumin 4.6 Globulin 3.4 Albumin/Globulin Ratio 1.3 Triglycerides 195 H Cholesterol 237 H LDL Cholesterol Direct 72 HDL Cholesterol 132 H Venous Blood Potassium Urine Color Urine Appearance Urine pH Ur Specific [place] Urine Protein Urine Glucose (UA) Urine Ketones Urine Blood Urine Nitrate Urine Bilirubin Urine Urobilinogen Ur Leukocyte Esterase Urine RBC Urine WBC Ur Epithelial Cells Amorphous Sediment Urine Bacteria Urine Opiates Screen Urine Methadone Screen Ur Barbiturates Screen Ur Phencyclidine Scrn Ur Amphetamines Screen U Benzodiazepines Scrn U Oth Cocaine Metabols U Cannabinoids Screen Blood Type Antibody Screen BBK History Checked 01/18/19 01/18/19 01/18/19 05:40 06:05 06:05 WBC RBC Hgb Hct MCV MCH MCHC RDW Plt Count MPV Gran % Lymph % (Auto) [place] % (Auto) Eos % (Auto) Baso % (Auto) Gran # Lymph # (Auto) [place] # (Auto) Eos # (Auto) Baso # (Auto) PT INR APTT pO2 89 H VBG pH 7.31 L VBG pCO2 36.0 L VBG HCO3 18.1 L VBG Total CO2 19.2 L VBG O2 Sat (Calc) 98.6 H VBG Base Excess -7.4 L VBG Potassium 4.3 Sodium 136.0 Chloride 91.0 L Glucose 494 H* Lactate 15.4 H* FiO2 21.0 Crit Value Called To Alexandra michaels [employer] Crit Value Called By Babita Blood Gas Notified Time 600 Potassium Carbon Dioxide Anion Gap BUN Creatinine Est GFR ( Amer) Est GFR (Non-Af Amer) POC Glucose (mg/dL) Random Glucose Calcium Total Bilirubin AST ALT Alkaline Phosphatase Total Creatine Kinase Troponin I Total Protein Albumin Globulin Albumin/Globulin Ratio Triglycerides Cholesterol LDL Cholesterol Direct HDL Cholesterol Venous Blood Potassium 4.3 Urine Color Yellow Urine Appearance Clear Urine pH 6.0 Ur Specific [place] >= 1.030 Urine Protein Trace H Urine Glucose (UA) >=1000 Urine Ketones Trace H Urine Blood Trace-intact H Urine Nitrate Negative Urine Bilirubin Negative Urine Urobilinogen 0.2 Ur Leukocyte Esterase Negative Urine RBC 0 - 2 Urine WBC 0 - 2 Ur Epithelial Cells 0 - 2 Amorphous Sediment Moderate Urine Bacteria Occ Urine Opiates Screen Positive H Urine Methadone Screen Negative Ur Barbiturates Screen Negative Ur Phencyclidine Scrn Negative Ur Amphetamines Screen Negative U Benzodiazepines Scrn Negative U Oth Cocaine Metabols Negative U Cannabinoids Screen Negative Blood Type Antibody Screen BBK History Checked 03/25/18 03/25/18 03/25/18 06:49 08:12 09:30 WBC RBC Hgb Hct MCV MCH MCHC RDW Plt Count MPV Gran % Lymph % (Auto) [place] % (Auto) Eos % (Auto) Baso % (Auto) Gran # Lymph # (Auto) [place] # (Auto) Eos # (Auto) Baso # (Auto) PT INR APTT pO2 VBG pH VBG pCO2 VBG HCO3 VBG Total CO2 VBG O2 Sat (Calc) VBG Base Excess VBG Potassium Sodium 138 Chloride 101 Glucose Lactate FiO2 Crit Value Called To Crit Value Called By Blood Gas Notified Time Potassium 4.1 Carbon Dioxide 27 Anion Gap 14 BUN 21 Creatinine 1.0 Est GFR ( Amer) > 60 Est GFR (Non-Af Amer) > 60 POC Glucose (mg/dL) 372 H Random Glucose 242 H Calcium 9.4 Total Bilirubin AST ALT Alkaline Phosphatase Total Creatine Kinase 92 Troponin I Total Protein Albumin Globulin Albumin/Globulin Ratio Triglycerides Cholesterol LDL Cholesterol Direct HDL Cholesterol Venous Blood Potassium Urine Color Urine Appearance Urine pH Ur Specific [place] Urine Protein Urine Glucose (UA) Urine Ketones Urine Blood Urine Nitrate Urine Bilirubin Urine Urobilinogen Ur Leukocyte Esterase Urine RBC Urine WBC Ur Epithelial Cells Amorphous Sediment Urine Bacteria Urine Opiates Screen Urine Methadone Screen Ur Barbiturates Screen Ur Phencyclidine Scrn Ur Amphetamines Screen U Benzodiazepines Scrn U Oth Cocaine Metabols U Cannabinoids Screen Blood Type B POSITIVE Antibody Screen Negative BBK History Checked No verified bt 03/25/18 03/25/18 09:30 09:33 WBC RBC Hgb Hct MCV MCH MCHC RDW Plt Count MPV Gran % Lymph % (Auto) [place] % (Auto) Eos % (Auto) Baso % (Auto) Gran # Lymph # (Auto) [place] # (Auto) Eos # (Auto) Baso # (Auto) PT INR APTT pO2 192 H VBG pH 7.42 VBG pCO2 44.0 VBG HCO3 28.5 H VBG Total CO2 29.9 H VBG O2 Sat (Calc) 100.1 H VBG Base Excess 3.4 H VBG Potassium 3.8 Sodium 138.0 Chloride 102.0 Glucose 253 H Lactate 4.1 H* FiO2 21.0 Crit Value Called To Erika Crit Value Called By Ab Blood Gas Notified Time 950 Potassium Carbon Dioxide Anion Gap BUN Creatinine Est GFR ( Amer) Est GFR (Non-Af Amer) POC Glucose (mg/dL) 230 H Random Glucose Calcium Total Bilirubin AST ALT Alkaline Phosphatase Total Creatine Kinase Troponin I Total Protein Albumin Globulin Albumin/Globulin Ratio Triglycerides Cholesterol LDL Cholesterol Direct HDL Cholesterol Venous Blood Potassium 3.8 Urine Color Urine Appearance Urine pH Ur Specific [place] Urine Protein Urine Glucose (UA) Urine Ketones Urine Blood Urine Nitrate Urine Bilirubin Urine Urobilinogen Ur Leukocyte Esterase Urine RBC Urine WBC Ur Epithelial Cells Amorphous Sediment Urine Bacteria Urine Opiates Screen Urine Methadone Screen Ur Barbiturates Screen Ur Phencyclidine Scrn Ur Amphetamines Screen U Benzodiazepines Scrn U Oth Cocaine Metabols U Cannabinoids Screen Blood Type Antibody Screen BBK History Checked Attending/Attestation - Attestation I have personally seen and examined this patient.: Yes I have fully participated in the care of the patient.: Yes I have reviewed all pertinent clinical information: Yes Notes (Text): 03/25/18 10:54 The patient was seen and examined at the bedside. Patient care was discussed with resident Medical records, lab studies, and imaging were reviewed and management issues were discussed and formulated. Agree with above treatment plans as outlined in 's note with addition of the following: Seizure \ Encephalopathy \ DKA \ SETH \ ho COPD -hemodynamic monitoring to maintain MAP>65 -f\u ECho to assess baseline LV function -o2 supplementation to maintain Spo2>90 Pao2>60; currently comfortable on NC -nebs PRN -CXR reviewed , and shows no visible opacification -f\u Bun\Cr and U\o; IVF with NS -continue Insulin drip as per protocol and BGM q1h -monitor CH7 for Anion gap q4hrs -monitor and replace e-lites -NPO diet and aspiration precautions -f\u HbA1c -consider endocrine eval -neurology team eval -f\u EEG -MRI brain -continue keppra and seizure precautions -DVT prophylaxis CCM time 35min
--- NOTE | 2018-03-25 08:22 | RAD ---
HISTORY: Code Stroke COMPARISON: Chest x-ray performed 02/11/18 TECHNIQUE: Chest, one view. FINDINGS: LUNGS: No focal consolidation. Previously demonstrated patchy infiltrate in the left upper lobe is not appreciated on the current study. Please note that chest x-ray has limited sensitivity for the detection of pulmonary masses. PLEURA: No significant pleural effusion identified. No definite pneumothorax . CARDIOVASCULAR: Heart size appears within normal limits. Atherosclerotic calcifications present. OSSEOUS STRUCTURES: No acute osseous abnormality identified. VISUALIZED UPPER ABDOMEN: Unremarkable. OTHER FINDINGS: None. IMPRESSION: No focal consolidation.
[2018-03-25] MEDS ORDERED: Albuterol-Ipratrop 3 mg / 0.5 (3 ml) UD IH PRN (08:44)
[2018-03-25 09:00] VITALS: BMI 19.5
--- NOTE | 2018-03-25 09:18 | CT ---
Date of service: 03/25/2018 PROCEDURE: CT HEAD WITHOUT CONTRAST. HISTORY: Code Stroke COMPARISON: None available. TECHNIQUE: Axial computed tomography images were obtained through the head/brain without intravenous contrast. Radiation dose: Total exam DLP = 1063.5 mGy-cm. This CT exam was performed using one or more of the following dose reduction techniques: Automated exposure control, adjustment of the mA and/or kV according to patient size, and/or use of iterative reconstruction technique. FINDINGS: HEMORRHAGE: No intracranial hemorrhage. BRAIN: No mass effect or edema. Severe chronic microvascular changes. Chronic lacunar infarct in the left thalamus. Mild atrophy. There is also a chronic lacunar infarct in the right side of the jovan. VENTRICLES: Unremarkable. No hydrocephalus. CALVARIUM: Unremarkable. PARANASAL SINUSES: Unremarkable as visualized. No significant inflammatory changes. MASTOID AIR CELLS: Unremarkable as visualized. No inflammatory changes. OTHER FINDINGS: The report concurs with the preliminary [facility] report IMPRESSION: No acute intracranial findings
--- NOTE | 2018-03-25 09:24 | CARD ---
APPROVED REPORT Date of service: 03/25/2018 EKG Measurement Heart [id number] <Conclusion> Sinus tachycardia Nonspecific T wave abnormality Abnormal ECG
--- NOTE | 2018-03-25 09:26 | CT ---
Date of service: 03/25/2018 PROCEDURE: CT Angiography of the neck with contrast HISTORY: code stroke COMPARISON: None. TECHNIQUE: Contiguous axial images of the neck were obtained from the level of the skull-base to the superior mediastinum in the arteriographic phase of enhancement. Coronal and sagittal reformats or also generated. IV contrast dose: 100 cc of Visipaque Radiation dose: Total exam DLP = 421.65 mGy-cm. This CT exam was performed using one or more of the following dose reduction techniques: Automated exposure control, adjustment of the mA and/or kV according to patient size, and/or use of iterative reconstruction technique. There is motion artifact on the study FINDINGS: RIGHT CAROTID ARTERIES: Common Carotid Artery: Normal. Carotid Bifurcation: Normal. Internal Carotid Artery:Normal. External Carotid Artery (proximal branches): Normal. LEFT CAROTID ARTERIES: Common Carotid Artery: Normal. Carotid Bifurcation: Normal. Internal Carotid Artery:Normal. External Carotid Artery (proximal branches): Normal. VERTEBRAL ARTERIES: Right Vertebral Artery: Normal. Left Vertebral Artery: Normal. OTHER FINDINGS: no aortic atherosclerotic calcification or mural plaque present. IMPRESSION: No significant stenosis CT Angiography of the Brain. HISTORY: code stroke COMPARISON: None available. TECHNIQUE: CT angiography of the intracranial arteries was performed. Coronal and sagittal maximum intensity projection reformated images were generated. Radiation dose: Total exam DLP = 421.65 mGy-cm. This CT exam was performed using one or more of the following dose reduction techniques: Automated exposure control, adjustment of the mA and/or kV according to patient size, and/or use of iterative reconstruction technique. FINDINGS: INTERNAL CEREBRAL ARTERIES: Unremarkable. The skull base, petrous, cavernous and supraclinoid segments are bilaterally widely patent. ANTERIOR CEREBRAL ARTERIES: Unremarkable. A1 and A2 segments are widely patent. Smaller distal branches unremarkable, as visualized. MIDDLE CEREBRAL ARTERIES: Unremarkable. M1 and M2 segments are widely patent. Perisylvian branches grossly symmetric. POSTERIOR CIRCULATION: Basilar Artery: Unremarkable. Distal Vertebral Arteries: Unremarkable. Posterior Cerebral Arteries: Unremarkable. Posterior Inferior Cerebellar Arteries: Unremarkable. ANEURYSM/ VASCULAR MALFORMATIONS: None. OTHER FINDINGS: The study is limited by motion artifact IMPRESSION: Unremarkable CT Angiography of the Brain.
[2018-03-25] MEDS ORDERED: Sodium Chloride 0.9% 1,000 ML IV STA ×2 (09:27→09:28)
[2018-03-25] MEDS ORDERED: Sodium Chloride 0.9% 1,000 ML IV SCH (09:29)
[2018-03-25 09:49] LABS: VENOUS BLOOD GAS BASE EXCESS 3.4 mmol/L (0.0-2.0); VENOUS BLOOD GAS PO2 192 mm/Hg (30-55); VENOUS BLOOD PH 7.42 (7.32-7.43)
[2018-03-25 09:56] LABS: BLOOD UREA NITROGEN 21 mg/dL (7-21); CALCIUM 9.4 mg/dL (8.4-10.5); GFR NON-AFRICAN AMERICAN > 60
--- NOTE | 2018-03-25 10:28 | CP.PCM.CON ---
<Vincent Esparza - Last Filed: 03/25/18 15:41> History of Present Illness - History of Present Illness History of Present Illness: Neurology Consultation (Dr. Hawkins's Service) CC: Seizure Like Activity/DKA HPI: Mr. Donis is a 62 year old male with a past medical history significant for COPD, Asthma, HTN and Tobacco Use Disorder who presented after he was found to have seizure like activity at his home. Patient is currently unresponsive to verbal, tactile and noxious stimuli. HPI and ROS is limited due to this. Patients mother at bedside who reports that she heard a noise that sounded like the patient had fallen and she decided to check in on him. She found patient to have "jerking movements" that lasted approximately 20 minutes. This subsided as ambulance was arriving. She denies this ever having happened in the past. She also reports that at baseline, the patient has no neurological deficits and is able complete his ADL's independently. Further ROS and HPI information unobtainable at this time due to patients mental status. PMH: As state above PSH: Soft Tissue Mass Removal from Forehead Family History: No history of seizures Social History: Current smoker as per chart review Allergies: Banana, Lisinopril Home Medications: As per MAR Review of Systems - Review of Systems Systems not reviewed;Unavailable: Altered Mental Status Past Patient History - Infectious Disease Hx of Infectious Diseases: None - Past Social History Smoking Status: Current Some Days Smoker - CARDIAC Hx Cardiac Disorders: No - PULMONARY Hx Respiratory Disorders: Yes Hx Asthma: Yes Hx Chronic Obstructive Pulmonary Disease (COPD): Yes - NEUROLOGICAL Hx Neurological Disorder: No - HEENT Hx HEENT Problems: No - RENAL Hx Chronic Kidney Disease: No - ENDOCRINE/METABOLIC Hx Endocrine Disorders: No - HEMATOLOGICAL/ONCOLOGICAL Hx Blood Disorders: No - INTEGUMENTARY Hx Dermatological Problems: No - MUSCULOSKELETAL/RHEUMATOLOGICAL Hx Musculoskeletal Disorders: No - GASTROINTESTINAL Hx Gastrointestinal Disorders: No - GENITOURINARY/GYNECOLOGICAL Hx Genitourinary Disorders: No - PSYCHIATRIC Hx Psychophysiologic Disorder: No Hx Substance Use: No - SURGICAL HISTORY Other/Comment: A lump removal from forehead Meds Allergies/Adverse Reactions: Allergies Allergy/AdvReac Type Severity Reaction Status Date / Time banana Allergy ANAPHYLAXIS Verified 02/11/18 18:21 lisinopril Allergy COUGH Verified 12/25/17 11:15 - Medications Medications: Current Medications Albuterol/Ipratropium (Duoneb 3 Mg/0.5 Mg (3 Ml) Ud) 3 ml IH Q2H PRN PRN Reason: Shortness of Breath Heparin Sodium (Porcine) (Heparin) 5,000 units SC Q8 JENNIFER; Protocol Insulin Human Regular 100 (units/ Sodium Chloride) 100 mls @ 3 mls/hr IV .Q24H PRN; Protocol PRN Reason: TITRATE PER MD ORDER Last Admin: 03/25/18 08:31 Dose: 6 units/hr, 6 mls/hr Sodium Chloride (Sodium Chloride 0.9%) 1,000 mls @ 999 mls/hr IV .Q1H1M STA Stop: 03/25/18 10:28 Sodium Chloride (Sodium Chloride 0.9%) 1,000 mls @ 150 mls/hr IV .Q6H40M [facility] Physical Exam - Constitutional Appears: Non-toxic, No Acute Distress - Head Exam Head Exam: ATRAUMATIC, NORMOCEPHALIC - Eye Exam Eye Exam: PERRL Pupil Exam: NORMAL ACCOMODATION - Respiratory Exam Respiratory Exam: Clear to Auscultation Bilateral - Cardiovascular Exam Cardiovascular Exam: REGULAR RHYTHM - GI/Abdominal Exam GI & Abdominal Exam: Normal Bowel Sounds, Soft. absent: Tenderness - Extremities Exam Extremities exam: Negative for: pedal edema - Neurological Exam Neurological exam: Altered Additional comments: Unresponsive to verbal, tactile and noxious stimuli; Corneal, Patellar, and Plantar reflexes intact - Skin Skin Exam: Dry, Warm Results - Vital Signs Recent Vital Signs: Last Vital Signs Temp 97.5 F L 03/25/18 05:55 Pulse 90 03/25/18 07:23 Resp 16 03/25/18 07:23 BP 121/74 03/25/18 07:23 Pulse Ox 100 03/25/18 07:23 - Labs Result Diagrams: 03/25/18 05:40 03/25/18 11:50 Labs: Laboratory Results - last 24 hr 03/25/18 03/25/18 03/25/18 05:40 05:40 05:40 WBC 11.2 H D RBC 4.57 Hgb 13.6 L Hct 40.6 L MCV 88.8 MCH 29.8 MCHC 33.5 RDW 12.1 Plt Count 329 MPV 10.1 Gran % 72.3 H Lymph % (Auto) 20.8 L [place] % (Auto) 6.1 H Eos % (Auto) 0.6 L Baso % (Auto) 0.2 Gran # 8.07 H Lymph # (Auto) 2.3 [place] # (Auto) 0.7 H Eos # (Auto) 0.1 Baso # (Auto) 0.02 PT 9.8 INR 0.85 APTT 26.9 pO2 VBG pH VBG pCO2 VBG HCO3 VBG Total CO2 VBG O2 Sat (Calc) VBG Base Excess VBG Potassium Sodium 137 Chloride 94 L Glucose Lactate FiO2 Crit Value Called To Crit Value Called By Blood Gas Notified Time Potassium 4.4 Carbon Dioxide 19 L Anion Gap 29 H BUN 22 H Creatinine 1.4 Est GFR ( Amer) > 60 Est GFR (Non-Af Amer) 52 POC Glucose (mg/dL) Random Glucose 481 H* D Calcium 10.1 Total Bilirubin 0.4 AST 52 ALT 42 Alkaline Phosphatase 163 H Total Creatine Kinase Cancelled Troponin I < 0.01 Total Protein 8.0 Albumin 4.6 Globulin 3.4 Albumin/Globulin Ratio 1.3 Triglycerides 195 H Cholesterol 237 H LDL Cholesterol Direct 72 HDL Cholesterol 132 H Venous Blood Potassium Urine Color Urine Appearance Urine pH Ur Specific [place] Urine Protein Urine Glucose (UA) Urine Ketones Urine Blood Urine Nitrate Urine Bilirubin Urine Urobilinogen Ur Leukocyte Esterase Urine RBC Urine WBC Ur Epithelial Cells Amorphous Sediment Urine Bacteria Urine Opiates Screen Urine Methadone Screen Ur Barbiturates Screen Ur Phencyclidine Scrn Ur Amphetamines Screen U Benzodiazepines Scrn U Oth Cocaine Metabols U Cannabinoids Screen Blood Type Antibody Screen BBK History Checked 03/25/18 03/25/18 03/25/18 05:40 06:05 06:05 WBC RBC Hgb Hct MCV MCH MCHC RDW Plt Count MPV Gran % Lymph % (Auto) [place] % (Auto) Eos % (Auto) Baso % (Auto) Gran # Lymph # (Auto) [place] # (Auto) Eos # (Auto) Baso # (Auto) PT INR APTT pO2 89 H VBG pH 7.31 L VBG pCO2 36.0 L VBG HCO3 18.1 L VBG Total CO2 19.2 L VBG O2 Sat (Calc) 98.6 H VBG Base Excess -7.4 L VBG Potassium 4.3 Sodium 136.0 Chloride 91.0 L Glucose 494 H* Lactate 15.4 H* FiO2 21.0 Crit Value Called To Alexandra michaels rn hemodialysis charge Crit Value Called By [facility] Blood Gas Notified Time 600 Potassium Carbon Dioxide Anion Gap BUN Creatinine Est GFR ( Amer) Est GFR (Non-Af Amer) POC Glucose (mg/dL) Random Glucose Calcium Total Bilirubin AST ALT Alkaline Phosphatase Total Creatine Kinase Troponin I Total Protein Albumin Globulin Albumin/Globulin Ratio Triglycerides Cholesterol LDL Cholesterol Direct HDL Cholesterol Venous Blood Potassium 4.3 Urine Color Yellow Urine Appearance Clear Urine pH 6.0 Ur Specific [place] >= 1.030 Urine Protein Trace H Urine Glucose (UA) >=1000 Urine Ketones Trace H Urine Blood Trace-intact H Urine Nitrate Negative Urine Bilirubin Negative Urine Urobilinogen 0.2 Ur Leukocyte Esterase Negative Urine RBC 0 - 2 Urine WBC 0 - 2 Ur Epithelial Cells 0 - 2 Amorphous Sediment Moderate Urine Bacteria Occ Urine Opiates Screen Positive H Urine Methadone Screen Negative Ur Barbiturates Screen Negative Ur Phencyclidine Scrn Negative Ur Amphetamines Screen Negative U Benzodiazepines Scrn Negative U Oth Cocaine Metabols Negative U Cannabinoids Screen Negative Blood Type Antibody Screen BBK History Checked 03/25/18 03/25/18 03/25/18 06:49 08:12 09:30 WBC RBC Hgb Hct MCV MCH MCHC RDW Plt Count MPV Gran % Lymph % (Auto) [place] % (Auto) Eos % (Auto) Baso % (Auto) Gran # Lymph # (Auto) [place] # (Auto) Eos # (Auto) Baso # (Auto) PT INR APTT pO2 VBG pH VBG pCO2 VBG HCO3 VBG Total CO2 VBG O2 Sat (Calc) VBG Base Excess VBG Potassium Sodium 138 Chloride 101 Glucose Lactate FiO2 Crit Value Called To Crit Value Called By Blood Gas Notified Time Potassium 4.1 Carbon Dioxide 27 Anion Gap 14 BUN 21 Creatinine 1.0 Est GFR ( Amer) > 60 Est GFR (Non-Af Amer) > 60 POC Glucose (mg/dL) 372 H Random Glucose 242 H Calcium 9.4 Total Bilirubin AST ALT Alkaline Phosphatase Total Creatine Kinase 92 Troponin I Total Protein Albumin Globulin Albumin/Globulin Ratio Triglycerides Cholesterol LDL Cholesterol Direct HDL Cholesterol Venous Blood Potassium Urine Color Urine Appearance Urine pH Ur Specific [place] Urine Protein Urine Glucose (UA) Urine Ketones Urine Blood Urine Nitrate Urine Bilirubin Urine Urobilinogen Ur Leukocyte Esterase Urine RBC Urine WBC Ur Epithelial Cells Amorphous Sediment Urine Bacteria Urine Opiates Screen Urine Methadone Screen Ur Barbiturates Screen Ur Phencyclidine Scrn Ur Amphetamines Screen U Benzodiazepines Scrn U Oth Cocaine Metabols U Cannabinoids Screen Blood Type B POSITIVE Antibody Screen Negative BBK History Checked No verified bt 03/25/18 03/25/18 09:30 09:33 WBC RBC Hgb Hct MCV MCH MCHC RDW Plt Count MPV Gran % Lymph % (Auto) [place] % (Auto) Eos % (Auto) Baso % (Auto) Gran # Lymph # (Auto) [place] # (Auto) Eos # (Auto) Baso # (Auto) PT INR APTT pO2 192 H VBG pH 7.42 VBG pCO2 44.0 VBG HCO3 28.5 H VBG Total CO2 29.9 H VBG O2 Sat (Calc) 100.1 H VBG Base Excess 3.4 H VBG Potassium 3.8 Sodium 138.0 Chloride 102.0 Glucose 253 H Lactate 4.1 H* FiO2 21.0 Crit Value Called To Erika Crit Value Called By Ab Blood Gas Notified Time 950 Potassium Carbon Dioxide Anion Gap BUN Creatinine Est GFR ( Amer) Est GFR (Non-Af Amer) POC Glucose (mg/dL) 230 H Random Glucose Calcium Total Bilirubin AST ALT Alkaline Phosphatase Total Creatine Kinase Troponin I Total Protein Albumin Globulin Albumin/Globulin Ratio Triglycerides Cholesterol LDL Cholesterol Direct HDL Cholesterol Venous Blood Potassium 3.8 Urine Color Urine Appearance Urine pH Ur Specific [place] Urine Protein Urine Glucose (UA) Urine Ketones Urine Blood Urine Nitrate Urine Bilirubin Urine Urobilinogen Ur Leukocyte Esterase Urine RBC Urine WBC Ur Epithelial Cells Amorphous Sediment Urine Bacteria Urine Opiates Screen Urine Methadone Screen Ur Barbiturates Screen Ur Phencyclidine Scrn Ur Amphetamines Screen U Benzodiazepines Scrn U Oth Cocaine Metabols U Cannabinoids Screen Blood Type Antibody Screen BBK History Checked Assessment & Plan - Assessment and Plan (Free Text) Assessment: 62 year old male with a past medical history significant for COPD, Asthma, HTN and Tobacco Use Disorder who presented after he was found to have seizure like activity at his home. Patient is currently unresponsive to verbal, tactile and noxious stimuli not on sedation. Plan: -Seizure activity likely secondary to DKA -CT Head showed age appropriate atrophy and chronic microvascular changes with no acute intracranial pathology appreciated -CTA Head/Neck unremarkable for cerebral or vertebral vascular abnormalities -MRI Brain and Video EEG pending -Further recommendations as per Dr. Hawkins Patient seen and case discussed with attending, Dr. Hawkins. Vincent Esparza PGY2 - Date & Time Date: 03/25/18 Time: 10:28 <Zackery Hawkins - Last Filed: 03/26/18 14:56> Meds - Medications Medications: Current Medications Albuterol/Ipratropium (Duoneb 3 Mg/0.5 Mg (3 Ml) Ud) 3 ml IH Q2H PRN PRN Reason: Shortness of Breath Glimepiride (Amaryl) 4 mg PO DAILY JENNIFER Heparin Sodium (Porcine) (Heparin) 5,000 units SC Q8 JENNIFER; Protocol Last Admin: 03/26/18 06:30 Dose: 5,000 units Hydralazine HCl (Apresoline) 10 mg IVP Q6 PRN PRN Reason: Systolic Blood Pressure Last Admin: 03/26/18 03:48 Dose: 10 mg Insulin Human Regular 100 (units/ Sodium Chloride) 100 mls @ 3 mls/hr IV .Q24H PRN; Protocol PRN Reason: TITRATE PER MD ORDER Last Titration: 03/25/18 11:00 Dose: 0 units/hr, 0 mls/hr Levetiracetam (Keppra 500mg Ivpb) 500 mg in 100 mls @ 400 mls/hr IVPB Q12 JENNIFER Last Admin: 03/26/18 10:58 Dose: 400 mls/hr Multivitamins/Vitamin C 10 ml/Thiamine HCl 100 mg/ Folic Acid 1 mg/ Sodium Chloride 1,011.2 mls @ 75 mls/hr IV .[id number] ONE Stop: 03/26/18 23:49 Last Admin: 03/26/18 11:14 Dose: 75 mls/hr Insulin Human Lispro (Humalog Med) 0 units SC ACHS JENNIFER; Protocol Last Admin: 03/26/18 10:49 Dose: Not Given Lorazepam (Ativan) 2 mg IVP Q4 PRN; Protocol PRN Reason: Anxiety Last Admin: 03/26/18 10:58 Dose: 2 mg Metformin HCl (Glucophage) 500 mg PO BID JENNIFER Results - Vital Signs Recent Vital Signs: Last Vital Signs Temp 97.5 F L 03/25/18 05:55 Pulse 72 03/26/18 06:00 Resp 34 H 03/26/18 09:09 BP 166/104 H 03/26/18 03:48 Pulse Ox 100 03/26/18 03:01 - Labs Result Diagrams: 03/26/18 05:30 03/26/18 05:30 Labs: Laboratory Results - last 24 hr 03/25/18 03/25/18 03/25/18 14:24 15:28 16:38 WBC RBC Hgb Hct MCV MCH MCHC RDW Plt Count MPV Gran % Lymph % (Auto) [place] % (Auto) Eos % (Auto) Baso % (Auto) Gran # Lymph # (Auto) [place] # (Auto) Eos # (Auto) Baso # (Auto) Sodium Potassium Chloride Carbon Dioxide Anion Gap BUN Creatinine Est GFR ( Amer) Est GFR (Non-Af Amer) POC Glucose (mg/dL) 208 H 214 H 254 H Random Glucose Calcium Phosphorus Magnesium Total Bilirubin AST ALT Alkaline Phosphatase Total Creatine Kinase CK-MB (CK-2) CK-MB (CK-2) % Total Protein Albumin Globulin Albumin/Globulin Ratio 03/25/18 03/25/18 03/26/18 18:54 21:40 00:50 WBC RBC Hgb Hct MCV MCH MCHC RDW Plt Count MPV Gran % Lymph % (Auto) [place] % (Auto) Eos % (Auto) Baso % (Auto) Gran # Lymph # (Auto) [place] # (Auto) Eos # (Auto) Baso # (Auto) Sodium Potassium Chloride Carbon Dioxide Anion Gap BUN Creatinine Est GFR ( Amer) Est GFR (Non-Af Amer) POC Glucose (mg/dL) 165 H 140 H 198 H Random Glucose Calcium Phosphorus Magnesium Total Bilirubin AST ALT Alkaline Phosphatase Total Creatine Kinase CK-MB (CK-2) CK-MB (CK-2) % Total Protein Albumin Globulin Albumin/Globulin Ratio 03/26/18 03/26/18 03/26/18 03:48 05:30 05:30 WBC 12.6 H RBC 4.44 Hgb 13.1 L Hct 39.5 L MCV 89.0 MCH 29.5 MCHC 33.2 RDW 12.2 Plt Count 262 MPV 9.8 Gran % 78.7 H Lymph % (Auto) 15.6 L [place] % (Auto) 5.1 Eos % (Auto) 0.4 L Baso % (Auto) 0.2 Gran # 9.95 H Lymph # (Auto) 2.0 [place] # (Auto) 0.6 Eos # (Auto) 0.1 Baso # (Auto) 0.03 Sodium 137 Potassium 3.6 Chloride 105 Carbon Dioxide 24 Anion Gap 11 BUN 12 Creatinine 0.7 L Est GFR ( Amer) > 60 Est GFR (Non-Af Amer) > 60 POC Glucose (mg/dL) 202 H Random Glucose 213 H Calcium 8.8 Phosphorus 2.2 L Magnesium 1.9 Total Bilirubin 0.9 AST 71 H D ALT 53 Alkaline Phosphatase 101 Total Creatine Kinase 971 H CK-MB (CK-2) 5.7 H CK-MB (CK-2) % 0.6 L Total Protein 6.9 Albumin 3.7 Globulin 3.2 Albumin/Globulin Ratio 1.1 03/26/18 10:04 WBC RBC Hgb Hct MCV MCH MCHC RDW Plt Count MPV Gran % Lymph % (Auto) [place] % (Auto) Eos % (Auto) Baso % (Auto) Gran # Lymph # (Auto) [place] # (Auto) Eos # (Auto) Baso # (Auto) Sodium Potassium Chloride Carbon Dioxide Anion Gap BUN Creatinine Est GFR ( Amer) Est GFR (Non-Af Amer) POC Glucose (mg/dL) 209 H Random Glucose Calcium Phosphorus Magnesium Total Bilirubin AST ALT Alkaline Phosphatase Total Creatine Kinase CK-MB (CK-2) CK-MB (CK-2) % Total Protein Albumin Globulin Albumin/Globulin Ratio Attending/Attestation - Attestation I have personally seen and examined this patient.: Yes I have fully participated in the care of the patient.: Yes I have reviewed all pertinent clinical information: Yes Notes (Text): I agree with the assessment and plan. Will start EEG and follow up to determine if the patient should be on any AED. Thank you Dr. Martinez for the consultation.
[2018-03-25] MEDS ORDERED: Insulin Detemir 100 units/ml Vial (Levemir) SC STA (11:02)
--- NOTE | 2018-03-25 12:14 | CP.PCM.HP ---
<VitalyNikolay - Last Filed: 03/25/18 12:31> History of Present Illness - History of Present Illness History of Present Illness: Medicine H/P: Vitaly, PGY - 2 Chief Complaint: Altered Mental Status/Seizure HPI: 62 M with no pertinent medical history presented to the ED with AMS. History has been obtained per chart review and discussion with night physicians, as patient is too altered to provide history. Patient apparently had seizure like activity and was brought in by family. ED course included ativan and Keppra, and work up revealed trace ketones in urine as well as sugars in the 400s. When I examined the patient this morning, patient reacts to sternal rub but does not provide any communication. Review of Systems: Unobtainable due to altered mental status Surgical History: Unobtainable due to altered mental status Medical History: Per EMR: COPD, Asthma, Tobacco Abuse, HTN Allergies: Per EMR: Banana, Lisinopril Social History: Unobtainable due to altered mental status Home Meds: Unobtainable due to altered mental status Family History: Unobtainable due to altered mental status Present on Admission - Present on Admission Any Indicators Present on Admission: No Past Patient History - Infectious Disease Hx of Infectious Diseases: None - Past Social History Smoking Status: Current Some Days Smoker - CARDIAC Hx Cardiac Disorders: No - PULMONARY Hx Respiratory Disorders: Yes Hx Asthma: Yes Hx Chronic Obstructive Pulmonary Disease (COPD): Yes - NEUROLOGICAL Hx Neurological Disorder: No - HEENT Hx HEENT Problems: No - RENAL Hx Chronic Kidney Disease: No - ENDOCRINE/METABOLIC Hx Endocrine Disorders: No - HEMATOLOGICAL/ONCOLOGICAL Hx Blood Disorders: No - INTEGUMENTARY Hx Dermatological Problems: No - MUSCULOSKELETAL/RHEUMATOLOGICAL Hx Musculoskeletal Disorders: No - GASTROINTESTINAL Hx Gastrointestinal Disorders: No - GENITOURINARY/GYNECOLOGICAL Hx Genitourinary Disorders: No - PSYCHIATRIC Hx Psychophysiologic Disorder: No Hx Substance Use: No - SURGICAL HISTORY Other/Comment: A lump removal from forehead Meds Allergies/Adverse Reactions: Allergies Allergy/AdvReac Type Severity Reaction Status Date / Time banana Allergy ANAPHYLAXIS Verified 02/11/18 18:21 lisinopril Allergy COUGH Verified 12/25/17 11:15 Physical Exam - Constitutional Appears: Non-toxic, Other Additional comments: Altered; cannot provide any history. Protecting airway - Head Exam Head Exam: ATRAUMATIC, NORMAL INSPECTION, NORMOCEPHALIC - Eye Exam Eye Exam: EOMI, Normal appearance, PERRL Pupil Exam: Miosis (Initial evaluation showed mydriasis, now pinpoint), PERRL - ENT Exam ENT Exam: Mucous Membranes Moist, Normal Exam - Neck Exam Neck exam: Positive for: Normal Inspection - Respiratory Exam Respiratory Exam: Clear to Auscultation Bilateral, NORMAL BREATHING PATTERN - Cardiovascular Exam Cardiovascular Exam: REGULAR RHYTHM - GI/Abdominal Exam GI & Abdominal Exam: Normal Bowel Sounds, Soft. absent: Tenderness - Extremities Exam Extremities exam: Positive for: normal inspection - Back Exam Back exam: NORMAL INSPECTION - Neurological Exam Neurological exam: Alert, CN II-XII Intact, Normal Gait, Oriented x3, Reflexes Normal - Psychiatric Exam Psychiatric exam: Normal Affect, Normal Mood - Skin Skin Exam: Dry, Intact, Normal Color, Warm Results - Vital Signs Recent Vital Signs: Last Vital Signs Temp 97.5 F L 03/25/18 05:55 Pulse 90 03/25/18 07:23 Resp 16 03/25/18 07:23 BP 121/74 03/25/18 07:23 Pulse Ox 100 03/25/18 07:23 - Labs Result Diagrams: 03/25/18 05:40 03/25/18 11:50 Labs: Laboratory Results - last 24 hr 03/25/18 03/25/18 03/25/18 05:40 05:40 05:40 WBC 11.2 H D RBC 4.57 Hgb 13.6 L Hct 40.6 L MCV 88.8 MCH 29.8 MCHC 33.5 RDW 12.1 Plt Count 329 MPV 10.1 Gran % 72.3 H Lymph % (Auto) 20.8 L [place] % (Auto) 6.1 H Eos % (Auto) 0.6 L Baso % (Auto) 0.2 Gran # 8.07 H Lymph # (Auto) 2.3 [place] # (Auto) 0.7 H Eos # (Auto) 0.1 Baso # (Auto) 0.02 PT 9.8 INR 0.85 APTT 26.9 pO2 VBG pH VBG pCO2 VBG HCO3 VBG Total CO2 VBG O2 Sat (Calc) VBG Base Excess VBG Potassium Sodium 137 Chloride 94 L Glucose Lactate FiO2 Crit Value Called To Crit Value Called By Blood Gas Notified Time Potassium 4.4 Carbon Dioxide 19 L Anion Gap 29 H BUN 22 H Creatinine 1.4 Est GFR ( Amer) > 60 Est GFR (Non-Af Amer) 52 POC Glucose (mg/dL) Random Glucose 481 H* D Calcium 10.1 Total Bilirubin 0.4 AST 52 ALT 42 Alkaline Phosphatase 163 H Total Creatine Kinase Cancelled Troponin I < 0.01 Total Protein 8.0 Albumin 4.6 Globulin 3.4 Albumin/Globulin Ratio 1.3 Triglycerides 195 H Cholesterol 237 H LDL Cholesterol Direct 72 HDL Cholesterol 132 H Venous Blood Potassium Urine Color Urine Appearance Urine pH Ur Specific [place] Urine Protein Urine Glucose (UA) Urine Ketones Urine Blood Urine Nitrate Urine Bilirubin Urine Urobilinogen Ur Leukocyte Esterase Urine RBC Urine WBC Ur Epithelial Cells Amorphous Sediment Urine Bacteria Urine Opiates Screen Urine Methadone Screen Ur Barbiturates Screen Ur Phencyclidine Scrn Ur Amphetamines Screen U Benzodiazepines Scrn U Oth Cocaine Metabols U Cannabinoids Screen Blood Type Antibody Screen BBK History Checked 03/25/18 03/25/18 03/25/18 05:40 06:05 06:05 WBC RBC Hgb Hct MCV MCH MCHC RDW Plt Count MPV Gran % Lymph % (Auto) [place] % (Auto) Eos % (Auto) Baso % (Auto) Gran # Lymph # (Auto) [place] # (Auto) Eos # (Auto) Baso # (Auto) PT INR APTT pO2 89 H VBG pH 7.31 L VBG pCO2 36.0 L VBG HCO3 18.1 L VBG Total CO2 19.2 L VBG O2 Sat (Calc) 98.6 H VBG Base Excess -7.4 L VBG Potassium 4.3 Sodium 136.0 Chloride 91.0 L Glucose 494 H* Lactate 15.4 H* FiO2 21.0 Crit Value Called 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 Crit Value Called By [facility] Blood Gas Notified Time 600 Potassium Carbon Dioxide Anion Gap BUN Creatinine Est GFR ( Amer) Est GFR (Non-Af Amer) POC Glucose (mg/dL) Random Glucose Calcium Total Bilirubin AST ALT Alkaline Phosphatase Total Creatine Kinase Troponin I Total Protein Albumin Globulin Albumin/Globulin Ratio Triglycerides Cholesterol LDL Cholesterol Direct HDL Cholesterol Venous Blood Potassium 4.3 Urine Color Yellow Urine Appearance Clear Urine pH 6.0 Ur Specific [place] >= 1.030 Urine Protein Trace H Urine Glucose (UA) >=1000 Urine Ketones Trace H Urine Blood Trace-intact H Urine Nitrate Negative Urine Bilirubin Negative Urine Urobilinogen 0.2 Ur Leukocyte Esterase Negative Urine RBC 0 - 2 Urine WBC 0 - 2 Ur Epithelial Cells 0 - 2 Amorphous Sediment Moderate Urine Bacteria Occ Urine Opiates Screen Positive H Urine Methadone Screen Negative Ur Barbiturates Screen Negative Ur Phencyclidine Scrn Negative Ur Amphetamines Screen Negative U Benzodiazepines Scrn Negative U Oth Cocaine Metabols Negative U Cannabinoids Screen Negative Blood Type Antibody Screen BBK History Checked 03/25/18 03/25/18 03/25/18 06:49 08:12 09:30 WBC RBC Hgb Hct MCV MCH MCHC RDW Plt Count MPV Gran % Lymph % (Auto) [place] % (Auto) Eos % (Auto) Baso % (Auto) Gran # Lymph # (Auto) [place] # (Auto) Eos # (Auto) Baso # (Auto) PT INR APTT pO2 VBG pH VBG pCO2 VBG HCO3 VBG Total CO2 VBG O2 Sat (Calc) VBG Base Excess VBG Potassium Sodium 138 Chloride 101 Glucose Lactate FiO2 Crit Value Called To Crit Value Called By Blood Gas Notified Time Potassium 4.1 Carbon Dioxide 27 Anion Gap 14 BUN 21 Creatinine 1.0 Est GFR ( Amer) > 60 Est GFR (Non-Af Amer) > 60 POC Glucose (mg/dL) 372 H Random Glucose 242 H Calcium 9.4 Total Bilirubin AST ALT Alkaline Phosphatase Total Creatine Kinase 92 Troponin I Total Protein Albumin Globulin Albumin/Globulin Ratio Triglycerides Cholesterol LDL Cholesterol Direct HDL Cholesterol Venous Blood Potassium Urine Color Urine Appearance Urine pH Ur Specific [place] Urine Protein Urine Glucose (UA) Urine Ketones Urine Blood Urine Nitrate Urine Bilirubin Urine Urobilinogen Ur Leukocyte Esterase Urine RBC Urine WBC Ur Epithelial Cells Amorphous Sediment Urine Bacteria Urine Opiates Screen Urine Methadone Screen Ur Barbiturates Screen Ur Phencyclidine Scrn Ur Amphetamines Screen U Benzodiazepines Scrn U Oth Cocaine Metabols U Cannabinoids Screen Blood Type B POSITIVE Antibody Screen Negative BBK History Checked No verified bt 03/25/18 03/25/18 09:30 09:33 WBC RBC Hgb Hct MCV MCH MCHC RDW Plt Count MPV Gran % Lymph % (Auto) [place] % (Auto) Eos % (Auto) Baso % (Auto) Gran # Lymph # (Auto) [place] # (Auto) Eos # (Auto) Baso # (Auto) PT INR APTT pO2 192 H VBG pH 7.42 VBG pCO2 44.0 VBG HCO3 28.5 H VBG Total CO2 29.9 H VBG O2 Sat (Calc) 100.1 H VBG Base Excess 3.4 H VBG Potassium 3.8 Sodium 138.0 Chloride 102.0 Glucose 253 H Lactate 4.1 H* FiO2 21.0 Crit Value Called To Erika Crit Value Called By Ab Blood Gas Notified Time 950 Potassium Carbon Dioxide Anion Gap BUN Creatinine Est GFR ( Amer) Est GFR (Non-Af Amer) POC Glucose (mg/dL) 230 H Random Glucose Calcium Total Bilirubin AST ALT Alkaline Phosphatase Total Creatine Kinase Troponin I Total Protein Albumin Globulin Albumin/Globulin Ratio Triglycerides Cholesterol LDL Cholesterol Direct HDL Cholesterol Venous Blood Potassium 3.8 Urine Color Urine Appearance Urine pH Ur Specific [place] Urine Protein Urine Glucose (UA) Urine Ketones Urine Blood Urine Nitrate Urine Bilirubin Urine Urobilinogen Ur Leukocyte Esterase Urine RBC Urine WBC Ur Epithelial Cells Amorphous Sediment Urine Bacteria Urine Opiates Screen Urine Methadone Screen Ur Barbiturates Screen Ur Phencyclidine Scrn Ur Amphetamines Screen U Benzodiazepines Scrn U Oth Cocaine Metabols U Cannabinoids Screen Blood Type Antibody Screen BBK History Checked Assessment & Plan - Assessment and Plan (Free Text) Assessment: 62 M with no pertinent medical history presenting with possible seizure like activity and altered mental status. Patient's AMS could be due to several factors including opiate use, as tox screen was positive, as well as due to possible DKA. It could also be due to lactic acidosis which could be caused by the seizure activity. Right now it is unclear if patient is in DKA, as ketones are trace and patient's sugar is only in the 400s, with no previous known history of DM. Patient's labs reveal a HAGMA, which could be due to lactic acidosis vs DKA (gap is 24). CT head is negative for acute stroke. Plan Altered Mental Status, possibly 2/2 DKA vs Lactic Acidosis due to seizures VS Opiate OD - Insulin drip, FS q1h, BMP q4h, IVF with NS - Lipid panel pending (rule out hyperTG); Beta hydoxybutyrate; Daily labs with Mg/Phos - Monitor for hypokalemia with insulin drip - MRI Brain w/o contrast; Video EEG - Seizure precautions; 1:1 Sitter; Nursing Swallow Eval - Neuro consult: Dr. Covarrubias/Dr. Hawkins - Admit to MICU for insulin drip Possible Newly Diagnosed DM - Endo Consult: Dr. Martinez - Diabetes Education - DKA Tx as per previous assessment Asthma/COPD - Duonebs PRN for now Hx HTN - Hold home anti-hypertensives til they can be confirmed - BP stable for now Hx Tobacco Abuse - Will advise cessation when patient less altered PPx - Heparin <Martinez,Giulia R - Last Filed: 03/26/18 07:38> Results - Vital Signs Recent Vital Signs: Last Vital Signs Temp 97.5 F L 03/25/18 05:55 Pulse 72 03/26/18 06:00 Resp 34 H 03/26/18 03:10 BP 166/104 H 03/26/18 03:48 Pulse Ox 100 03/26/18 03:01 - Labs Result Diagrams: 03/26/18 05:30 03/26/18 05:30 Labs: Laboratory Results - last 24 hr 03/25/18 03/25/18 03/25/18 05:40 05:40 06:05 WBC RBC Hgb Hct MCV MCH MCHC RDW Plt Count MPV Gran % Lymph % (Auto) [place] % (Auto) Eos % (Auto) Baso % (Auto) Gran # Lymph # (Auto) [place] # (Auto) Eos # (Auto) Baso # (Auto) pO2 VBG pH VBG pCO2 VBG HCO3 VBG Total CO2 VBG O2 Sat (Calc) VBG Base Excess VBG Potassium Sodium Chloride Glucose Lactate FiO2 Crit Value Called To Crit Value Called By Blood Gas Notified Time Potassium Carbon Dioxide Anion Gap BUN Creatinine Est GFR ( Amer) Est GFR (Non-Af Amer) POC Glucose (mg/dL) Random Glucose Hemoglobin A1c 8.7 H Calcium Phosphorus Magnesium Total Bilirubin AST ALT Alkaline Phosphatase Total Creatine Kinase Cancelled Troponin I Total Protein Albumin Globulin Albumin/Globulin Ratio Venous Blood Potassium Urine Opiates Screen Positive H Urine Methadone Screen Negative Ur Barbiturates Screen Negative Ur Phencyclidine Scrn Negative Ur Amphetamines Screen Negative U Benzodiazepines Scrn Negative U Oth Cocaine Metabols Negative U Cannabinoids Screen Negative B-Hydroxybutyrate 0.16 Blood Type Blood Type Confirm Antibody Screen 03/25/18 03/25/18 03/25/18 06:49 08:12 09:30 WBC RBC Hgb Hct MCV MCH MCHC RDW Plt Count MPV Gran % Lymph % (Auto) [place] % (Auto) Eos % (Auto) Baso % (Auto) Gran # Lymph # (Auto) [place] # (Auto) Eos # (Auto) Baso # (Auto) pO2 VBG pH VBG pCO2 VBG HCO3 VBG Total CO2 VBG O2 Sat (Calc) VBG Base Excess VBG Potassium Sodium 138 Chloride 101 Glucose Lactate FiO2 Crit Value Called To Crit Value Called By Blood Gas Notified Time Potassium 4.1 Carbon Dioxide 27 Anion Gap 14 BUN 21 Creatinine 1.0 Est GFR ( Amer) > 60 Est GFR (Non-Af Amer) > 60 POC Glucose (mg/dL) 372 H Random Glucose 242 H Hemoglobin A1c Calcium 9.4 Phosphorus Magnesium Total Bilirubin AST ALT Alkaline Phosphatase Total Creatine Kinase 92 Troponin I Total Protein Albumin Globulin Albumin/Globulin Ratio Venous Blood Potassium Urine Opiates Screen Urine Methadone Screen Ur Barbiturates Screen Ur Phencyclidine Scrn Ur Amphetamines Screen U Benzodiazepines Scrn U Oth Cocaine Metabols U Cannabinoids Screen B-Hydroxybutyrate Blood Type B POSITIVE Blood Type Confirm Antibody Screen Negative 03/25/18 03/25/18 03/25/18 09:30 09:33 10:26 WBC RBC Hgb Hct MCV MCH MCHC RDW Plt Count MPV Gran % Lymph % (Auto) [place] % (Auto) Eos % (Auto) Baso % (Auto) Gran # Lymph # (Auto) [place] # (Auto) Eos # (Auto) Baso # (Auto) pO2 192 H VBG pH 7.42 VBG pCO2 44.0 VBG HCO3 28.5 H VBG Total CO2 29.9 H VBG O2 Sat (Calc) 100.1 H VBG Base Excess 3.4 H VBG Potassium 3.8 Sodium 138.0 Chloride 102.0 Glucose 253 H Lactate 4.1 H* FiO2 21.0 Crit Value Called To Erika Crit Value Called By Ab Blood Gas Notified Time 950 Potassium Carbon Dioxide Anion Gap BUN Creatinine Est GFR ( Amer) Est GFR (Non-Af Amer) POC Glucose (mg/dL) 230 H 161 H Random Glucose Hemoglobin A1c Calcium Phosphorus Magnesium Total Bilirubin AST ALT Alkaline Phosphatase Total Creatine Kinase Troponin I Total Protein Albumin Globulin Albumin/Globulin Ratio Venous Blood Potassium 3.8 Urine Opiates Screen Urine Methadone Screen Ur Barbiturates Screen Ur Phencyclidine Scrn Ur Amphetamines Screen U Benzodiazepines Scrn U Oth Cocaine Metabols U Cannabinoids Screen B-Hydroxybutyrate Blood Type Blood Type Confirm Antibody Screen 03/25/18 03/25/18 03/25/18 11:33 11:50 11:50 WBC RBC Hgb Hct MCV MCH MCHC RDW Plt Count MPV Gran % Lymph % (Auto) [place] % (Auto) Eos % (Auto) Baso % (Auto) Gran # Lymph # (Auto) [place] # (Auto) Eos # (Auto) Baso # (Auto) pO2 VBG pH VBG pCO2 VBG HCO3 VBG Total CO2 VBG O2 Sat (Calc) VBG Base Excess VBG Potassium Sodium 141 Chloride 103 Glucose Lactate FiO2 Crit Value Called To Crit Value Called By Blood Gas Notified Time Potassium 3.8 Carbon Dioxide 29 Anion Gap 13 BUN 19 Creatinine 0.9 Est GFR ( Amer) > 60 Est GFR (Non-Af Amer) > 60 POC Glucose (mg/dL) 83 Random Glucose 94 Hemoglobin A1c Calcium 9.4 Phosphorus Magnesium Total Bilirubin AST ALT Alkaline Phosphatase Total Creatine Kinase Troponin I 0.05 D Total Protein Albumin Globulin Albumin/Globulin Ratio Venous Blood Potassium Urine Opiates Screen Urine Methadone Screen Ur Barbiturates Screen Ur Phencyclidine Scrn Ur Amphetamines Screen U Benzodiazepines Scrn U Oth Cocaine Metabols U Cannabinoids Screen B-Hydroxybutyrate Blood Type Blood Type Confirm B POSITIVE Antibody Screen 03/25/18 03/25/18 03/25/18 12:58 13:25 14:24 WBC RBC Hgb Hct MCV MCH MCHC RDW Plt Count MPV Gran % Lymph % (Auto) [place] % (Auto) Eos % (Auto) Baso % (Auto) Gran # Lymph # (Auto) [place] # (Auto) Eos # (Auto) Baso # (Auto) pO2 VBG pH VBG pCO2 VBG HCO3 VBG Total CO2 VBG O2 Sat (Calc) VBG Base Excess VBG Potassium Sodium Chloride Glucose Lactate FiO2 Crit Value Called To Crit Value Called By Blood Gas Notified Time Potassium Carbon Dioxide Anion Gap BUN Creatinine Est GFR ( Amer) Est GFR (Non-Af Amer) POC Glucose (mg/dL) 203 H 170 H 208 H Random Glucose Hemoglobin A1c Calcium Phosphorus Magnesium Total Bilirubin AST ALT Alkaline Phosphatase Total Creatine Kinase Troponin I Total Protein Albumin Globulin Albumin/Globulin Ratio Venous Blood Potassium Urine Opiates Screen Urine Methadone Screen Ur Barbiturates Screen Ur Phencyclidine Scrn Ur Amphetamines Screen U Benzodiazepines Scrn U Oth Cocaine Metabols U Cannabinoids Screen B-Hydroxybutyrate Blood Type Blood Type Confirm Antibody Screen 03/25/18 03/25/18 03/25/18 15:28 16:38 18:54 WBC RBC Hgb Hct MCV MCH MCHC RDW Plt Count MPV Gran % Lymph % (Auto) [place] % (Auto) Eos % (Auto) Baso % (Auto) Gran # Lymph # (Auto) [place] # (Auto) Eos # (Auto) Baso # (Auto) pO2 VBG pH VBG pCO2 VBG HCO3 VBG Total CO2 VBG O2 Sat (Calc) VBG Base Excess VBG Potassium Sodium Chloride Glucose Lactate FiO2 Crit Value Called To Crit Value Called By Blood Gas Notified Time Potassium Carbon Dioxide Anion Gap BUN Creatinine Est GFR ( Amer) Est GFR (Non-Af Amer) POC Glucose (mg/dL) 214 H 254 H 165 H Random Glucose Hemoglobin A1c Calcium Phosphorus Magnesium Total Bilirubin AST ALT Alkaline Phosphatase Total Creatine Kinase Troponin I Total Protein Albumin Globulin Albumin/Globulin Ratio Venous Blood Potassium Urine Opiates Screen Urine Methadone Screen Ur Barbiturates Screen Ur Phencyclidine Scrn Ur Amphetamines Screen U Benzodiazepines Scrn U Oth Cocaine Metabols U Cannabinoids Screen B-Hydroxybutyrate Blood Type Blood Type Confirm Antibody Screen 03/25/18 03/26/18 03/26/18 21:40 05:30 05:30 WBC 12.6 H RBC 4.44 Hgb 13.1 L Hct 39.5 L MCV 89.0 MCH 29.5 MCHC 33.2 RDW 12.2 Plt Count 262 MPV 9.8 Gran % 78.7 H Lymph % (Auto) 15.6 L [place] % (Auto) 5.1 Eos % (Auto) 0.4 L Baso % (Auto) 0.2 Gran # 9.95 H Lymph # (Auto) 2.0 [place] # (Auto) 0.6 Eos # (Auto) 0.1 Baso # (Auto) 0.03 pO2 VBG pH VBG pCO2 VBG HCO3 VBG Total CO2 VBG O2 Sat (Calc) VBG Base Excess VBG Potassium Sodium 137 Chloride 105 Glucose Lactate FiO2 Crit Value Called To Crit Value Called By Blood Gas Notified Time Potassium 3.6 Carbon Dioxide 24 Anion Gap 11 BUN 12 Creatinine 0.7 L Est GFR ( Amer) > 60 Est GFR (Non-Af Amer) > 60 POC Glucose (mg/dL) 140 H Random Glucose 213 H Hemoglobin A1c Calcium 8.8 Phosphorus 2.2 L Magnesium 1.9 Total Bilirubin 0.9 AST 71 H D ALT 53 Alkaline Phosphatase 101 Total Creatine Kinase 971 H Troponin I Total Protein 6.9 Albumin 3.7 Globulin 3.2 Albumin/Globulin Ratio 1.1 Venous Blood Potassium Urine Opiates Screen Urine Methadone Screen Ur Barbiturates Screen Ur Phencyclidine Scrn Ur Amphetamines Screen U Benzodiazepines Scrn U Oth Cocaine Metabols U Cannabinoids Screen B-Hydroxybutyrate Blood Type Blood Type Confirm Antibody Screen Attending/Attestation - Attestation I have personally seen and examined this patient.: Yes I have fully participated in the care of the patient.: Yes I have reviewed all pertinent clinical information: Yes Notes (Text): Patient seen and examined by me with resident at 9:50AM on 03/25/18 in the emergency room. Case including HPI, physical exam, and assessment and plan d iscussed with resident. Agree with above with following additions/corrections. Patient is a 62-year-old male with past medical history significant for COPD, asthma, tobacco abuse, and hypertension who was present to the emergency room for altered mental status. History taken from chart as patient is altered and unable to provide history. No family available. As per chart review, patient was brought in by EMS for "seizure-like activity" witnessed by family. Per chart review, seizure like activity lasted approximately 1-2 minutes and patient had complained of a headache that evening. Patient is afebrile. Unable to obtain any review of systems from patient. Patient does move with sternal rub. However, patient does not respond verbally or open his eyes. Physical exam: General: Lying in bed in no acute distress HEENT: Normocephalic, atraumatic. Pinpoint pupils. Unable to examine oropharynx secondary to patient not being responsive and not opening mouth. Cardiovascular: Normal rhythm. Normal S1-S2. No murmurs, rubs, or gallops appreciated Pulmonary: Normal respiratory effort. No rhonchi, rales, or wheezing appreciated. Auscultated anteriorly. Patient not following commands. Gastrointestinal: Soft, nondistended. Appears to be nontender. Positive bowel sounds all 4 quadrants. No guarding. Musculoskeletal: Moves all extremities. No edema appreciated. Central nervous system: Moves with sternal rub. Not opening eyes or verbalizing. Dermatologic: Skin warm and dry. Assessment and plan: Patient is a 62-year-old male with past medical history significant for COPD, asthma, tobacco abuse, and hypertension who was present to the emergency room for altered mental status. 1. Toxic metabolic encephalopathy. Questionable secondary to possible DKA versus seizure-like activity versus lactic acidosis. May be secondary to drug abuse. UDS is positive for opiates. Patient on insulin drip. Continue IV fluids. Continue to monitor Accu-Cheks. Lipid panel and beta hydroxybutyrate pending. Neurology following, recommendations appreciated. MRI brain pending. Video EEG pending. Lactate 15.4. Repeat 4.1. Head CT per radiologist showed no acute intracranial findings. CTA neck and brain per radiologist showed unremarkable CT angiography of the brain, no significant stenosis. Monitor closely in the ICU. 2. Possible new onset diabetes with DKA and lactic acidosis. Pending hemoglobin A1c. Blood sugars in the 400s. Continue with insulin sliding scale. Positive ketones in the urine. Pending beta hydroxybutyrate. Monitor Accu-Cheks closely. Endocrinology was consulted, follow-up recommendations. 3. SETH. Continue IV fluids. 4. COPD/asthma. Nebulizer treatments as needed. O2 via nasal cannula as needed 5. History of tobacco abuse/?drug use. Will need to get more history when patient is no longer altered 6. DVT prophylaxis. Heparin
[2018-03-25 12:17] LABS: BLOOD UREA NITROGEN 19 mg/dL (7-21); CALCIUM 9.4 mg/dL (8.4-10.5); GFR NON-AFRICAN AMERICAN > 60
[2018-03-25 12:28] LABS: TROPONIN I 0.05 ng/mL
[2018-03-25] MEDS: Insulin Lispro (humaLOG) MEDIUM Coverage SC SCH ×3 (14:28→21:44)
--- NOTE | 2018-03-25 15:14 | CON ---
DATE: 03/25/2018 ENDOCRINOLOGY CONSULTATION LOCATION: ICU 129, Room 1. HISTORY OF PRESENT ILLNESS: This is a 62-year-old male admitted with a witnessed seizure-like event and currently undergoing neurological evaluation and management and is also being referred for diabetic evaluation for apparent recent diagnosis and onset of uncontrolled type 2 insulin-requiring diabetes as noted thereof. PAST MEDICAL HISTORY: Obstructive lung disease. Currently on prednisone taken as 10 mg once daily. History of hypertension and dyslipidemia. History of chronic bronchial asthma. FAMILY HISTORY: Positive for hypertension and diabetes. SOCIAL HISTORY: The patient is a current smoker at this time, has a supportive family otherwise. REVIEW OF SYSTEMS: Admits to generalized body weakness with episodic bouts of dizziness and lightheadedness worse on the day of admission. No chest pains or palpitations but admits to episodic shortness of breath especially on exertion. His oral intake has been variable with occasional dyspepsia and also admits to marked polyuria, nocturia and polydipsia. PHYSICAL EXAMINATION: GENERAL: He is an average-built male in no apparent distress. VITAL SIGNS: A blood pressure of 140/80, pulse of 100 beats per minute and regular, temperature 98, respirations 20. Height is 6 feet, weight is 144 pounds. HEENT: Head normocephalic. Eyes anicteric with pink conjunctivae. Funduscopy not possible at this time. Ears, nose and throat otherwise normal. NECK: Supple. Thyroid gland is normal in size. No carotid bruits or any cervical adenopathy. CARDIOPULMONARY: Some adynamic precordium. S1, S2 is rapid and regular. LUNGS: Clear to auscultation. ABDOMEN: Flat, soft with positive bowel sounds. EXTREMITIES: No peripheral edema. Pulses are +2 bilaterally. LABORATORY DATA: His chemistries initially showed a BUN of 22, sodium 137, potassium 4.4, chloride 94, CO2 is 19, glucose is 481 and creatinine is 1.4. ASSESSMENT: This is a 62-year-old male with uncontrolled and decompensated type 2 insulin-requiring diabetes, presenting here with hyperosmolar hyperglycemic state and little ketosis, apparent recent onset and evaluation of uncontrolled diabetes with no prior intake of any diabetic medications as noted thereof. He also has an apparent acute seizure event and is undergoing a full neurological workup and management. PLAN OF MANAGEMENT: We will highly recommend the discontinuation of his insulin drip infusion at this time and switch him over to a low-dose correction scale using regular insulin as ordered. We will observe his glycemic fluctuations overnight and determine the need whether the patient will require a basal and bolus insulin drug combination versus an oral hypoglycemic drug regimen given in combination as indicated. We will continue the vigorous IV hydration to optimize the lost fluids and electrolytes as noted. We will obtain serial chemistries and supplement accordingly as needed. A hemoglobin A1c has been sent out and baseline thyroid function studies have also been ordered. We will initiate diabetic education and dietary instructions also at the time of this admission. We will follow. Arianne Martinez MD
[2018-03-25] MEDS: levETIRAcetam 500mg IVPB 500 MG/100 ML BAG IVPB SCH (21:47)
[2018-03-26] MEDS: Sodium Chloride 0.9% 1,000 ML IV SCH (03:47)
[2018-03-26 06:07] LABS: BASO # 0.03 K/mm3 (0.0-2.0); BASO % 0.2 % (0.0-3.0); EOS # 0.1 (0.0-0.7); EOS % 0.4 % (1.5-5.0); GRAN # 9.95 (1.4-6.5); GRAN % 78.7 % (50.0-68.0); HEMOGLOBIN 13.1 g/dL (14.0-18.0); LYMPH % 15.6 % (22.0-35.0); MEAN CORPUSCULAR HEMOGLOBIN 29.5 pg (25.0-35.0); MEAN CORPUSCULAR HGB CONC 33.2 g/dl (31.0-37.0); MEAN PLATELET VOLUME 9.8 fl (7.0-11.0); MONO # 0.6 (0.1-0.6); MONO % 5.1 % (1.0-6.0); RBC 4.44 10^6/uL (3.5-6.1); RED CELL DISTRIBUTION WIDTH 12.2 % (11.5-14.5); WHITE BLOOD COUNT 12.6 10^3/uL (4.5-11.0)
[2018-03-26 06:58] LABS: ALB/GLOB RATIO 1.1 (1.1-1.8); ALBUMIN 3.7 g/dL (3.0-4.8); ALT/SGPT 53 U/L (7-56); AST/SGOT 71 U/L (17-59); BLOOD UREA NITROGEN 12 mg/dL (7-21); CALCIUM 8.8 mg/dL (8.4-10.5); GFR NON-AFRICAN AMERICAN > 60
[2018-03-26] MEDS ORDERED: Multivitamin (MVI) 10 ML, Thiamine 100 MG, Folic Acid 1 MG in Sodium Chloride 0.9% 1,00... IV ONE (10:21)
[2018-03-26 10:45] LABS: CK MB% 0.6 % (2.5-3.0); CK-MB 5.7 ng/mL (0.0-3.6)
[2018-03-26] MEDS: Insulin Lispro (humaLOG) MEDIUM Coverage SC SCH ×4 (10:49→22:10)
[2018-03-26] MEDS: levETIRAcetam 500mg IVPB 500 MG/100 ML BAG IVPB SCH ×2 (10:58→21:03)
--- NOTE | 2018-03-26 13:42 | PN ---
DATE: 03/26/2018 LOCATION: ICU 129, room 1. SUBJECTIVE: This is a 62-year-old male with apparent recent onset of seizure event, currently undergoing a full neurological workup and management and is also being followed closely for recent onset of uncontrolled type 2 diabetes as noted. His glucose values today have ranged from 198-202 and 209 mg/dL. His chemistry showed BUN 12, sodium 137, potassium 3.6, chloride 105, CO2 of 24, glucose 213 and creatinine 0.7. The patient received intensive insulin therapy with an insulin drip infusion as given, of note, with remarkable response thereof. He also received vigorous IV hydration as given. PLAN: So for today, we will discontinue the insulin drip infusion as already done and we will continue the current coverage scale using a medium algorithm as ordered. We will also start him on oral hypoglycemic therapy being that it is newly diagnosed and should respond very well to a combination of oral hypoglycemic agents as noted. We will add Amaryl given as 4 mg once daily in the morning as ordered. We will also add metformin given as 500 mg b.i.d. with meals to start today as ordered. We will obtain serial chemistries and supplement accordingly as needed. We will follow. Arianne Martinez MD
--- NOTE | 2018-03-26 14:13 | PN ---
DATE: 03/26/2018 MAILS SUPERVISOR NOTE SUBJECTIVE: The patient is resting in bed with O2 via nasal cannula. No obvious distress. The patient does respond to the spoken word, will move and answer simple hands. PHYSICAL EXAMINATION: VITAL SIGNS: His temperature is 97.5, pulse is 72, respirations are 30 and BP is 166/104. SKIN: Warm and dry. HEENT: Head atraumatic, normocephalic. Eyes reactive to light. Ear, nose and throat seemed to be within normal limits. NECK: Supple. No JVD. No thyroid enlargement or lymph nodes. HEART: Has regular rate and rhythm. Normal S1 and S2. LUNGS: Reveal good breath sounds bilaterally. ABDOMEN: Soft. Decreased bowel sounds. GENITALIA: Deferred. RECTAL: Deferred. MUSCULOSKELETAL: No joint deformities. EXTREMITIES: Reveal trace lower extremity edema. NEUROLOGICALLY: He is a little lethargic, but moving all extremities. LABORATORY DATA: His white count is 12.6, hemoglobin is 13.1, hematocrit 39.5 with platelets of 262,000. His sodium is 137, potassium 3.6, chloride 105, CO2 of 24 with a BUN of 12, creatinine of 0.7 and a glucose of 213. IMPRESSION: This patient has a new onset seizure disorder, presents with presents with diabetic ketoacidosis as well. The patient has a history of chronic obstructive pulmonary disease as well as hypertension. PLAN: We will continue with his hydralazine. The patient is getting an Ativan as well as DuoNeb and subcutaneous heparin. He is on insulin for his diabetes, at this time he is getting 0.9% normal saline and is on Keppra. Note that the patient is getting a video-assisted EEG at this time as well. We shall continue to treat aggressively along with the other consultants and the primary care doctor. Vickey Barber MD
--- NOTE | 2018-03-26 15:20 | CP.PCM.PN ---
<Gabe Cordon - Last Filed: 03/26/18 16:04> Subjective - Date & Time of Evaluation Date of Evaluation: 03/26/18 Time of Evaluation: 10:00 - Subjective Subjective: Pt seen and examined at bedside. Pt agitated overnight, given ativan, pt was placed in 2 point restraints by overnight resident. Pt placed on video EEG monitoring by neuro. Objective - Vital Signs/Intake and Output Vital Signs (last 24 hours): Temp Pulse Resp BP Pulse Ox 97.5 F L 72 34 H 166/104 H 100 03/25/18 05:55 03/26/18 06:00 03/26/18 09:09 03/26/18 03:48 03/26/18 03:01 Intake and Output: 03/26/18 03/26/18 06:59 18:59 Intake Total 750 Output Total 700 Balance 50 - Medications Medications: Current Medications Albuterol/Ipratropium (Duoneb 3 Mg/0.5 Mg (3 Ml) Ud) 3 ml IH Q2H PRN PRN Reason: Shortness of Breath Glimepiride (Amaryl) 4 mg PO DAILY [facility] Heparin Sodium (Porcine) (Heparin) 5,000 units SC Q8 [facility]; Protocol Last Admin: 03/26/18 06:30 Dose: 5,000 units Hydralazine HCl (Apresoline) 10 mg IVP Q6 PRN PRN Reason: Systolic Blood Pressure Last Admin: 03/26/18 03:48 Dose: 10 mg Insulin Human Regular 100 (units/ Sodium Chloride) 100 mls @ 3 mls/hr IV .Q24H PRN; Protocol PRN Reason: TITRATE PER MD ORDER Last Titration: 03/25/18 11:00 Dose: 0 units/hr, 0 mls/hr Levetiracetam (Keppra 500mg Ivpb) 500 mg in 100 mls @ 400 mls/hr IVPB Q12 [facility] Last Admin: 03/26/18 10:58 Dose: 400 mls/hr Multivitamins/Vitamin C 10 ml/Thiamine HCl 100 mg/ Folic Acid 1 mg/ Sodium Chloride 1,011.2 mls @ 75 mls/hr IV .[id number] ONE Stop: 03/26/18 23:49 Last Admin: 03/26/18 11:14 Dose: 75 mls/hr Insulin Human Lispro (Humalog Med) 0 units SC ACHS JENN[facility]; Protocol Last Admin: 03/26/18 10:49 Dose: Not Given Lorazepam (Ativan) 2 mg IVP Q4 PRN; Protocol PRN Reason: Anxiety Last Admin: 03/26/18 10:58 Dose: 2 mg Metformin HCl (Glucophage) 500 mg PO BID JENN[facility] - Labs Labs: 03/26/18 05:30 03/26/18 05:30 PT 9.8 SECONDS (9.4-12.5) 03/25/18 05:40 INR 0.85 03/25/18 05:40 APTT 26.9 Seconds (25.1-36.5) 03/25/18 05:40 - Head Exam Head Exam: ATRAUMATIC, NORMOCEPHALIC - Eye Exam Eye Exam: EOMI - ENT Exam ENT Exam: Mucous Membranes Moist - Neck Exam Neck Exam: Full ROM - Respiratory Exam Respiratory Exam: Clear to Ausculation Bilateral, NORMAL BREATHING PATTERN. absent: Accessory Muscle Use, Wheezes - Cardiovascular Exam Cardiovascular Exam: RRR, +S1, +S2 - GI/Abdominal Exam GI & Abdominal Exam: Soft, Normal Bowel Sounds - Extremities Exam Extremities Exam: Full ROM. absent: Pedal Edema - Psychiatric Exam Psychiatric exam: Normal Affect, Normal Mood - Skin Skin Exam: Dry, Normal Color, Warm Assessment and Plan - Assessment and Plan (Free Text) Assessment: Pt is a 62 yo male with no PMH who presented with possible seizure like activity and AMS likely a result of DKA which may have been precipiated by alcohol withdrawal or seizure. Plan: Toxic metabolic encephalograph with multi factorial etiology - pt in DKA, HA1C 8.7 - possible alcohol or opiate intoxication/withdrawal - Lipid panel: trig 195, TC 237, LDL 72, HDL 132 - Beta hydoxybutyrate follow up - Mg 1.9, Phos 2.2 - MRI Brain w/o contrast follow up - Video EEG - Seizure precautions; 1:1 Sitter - Keppra for seizures - Neuro consult: Dr. Covarrubias/Dr. Hawkins, seizure activity likely secondary to DKA DM - DKA - glimepiride 4mg PO - metformin 500 BID - Endo Consult: Dr. Martinez, rec discontinue insulin drip, oral hypoglycemic therapy Asthma/COPD - Duonebs PRN HTN - hydralazine 10mg IVP q6 Tobacco Abuse - Will advise cessation when patient less altered Ppx - Heparin Pt seen, examined, assessment and plan discussed with Dr Giulia Cordon PGY1, Internal Medicine Resident <Giulia Martinez R - Last Filed: 03/27/18 08:16> Objective - Vital Signs/Intake and Output Vital Signs (last 24 hours): Temp Pulse Resp BP Pulse Ox 97.5 F L 64 34 H 180/118 H 100 03/25/18 05:55 03/27/18 06:00 03/26/18 09:09 03/26/18 17:00 03/26/18 03:01 Intake and Output: 03/27/18 03/27/18 06:59 18:59 Intake Total 820 Output Total 900 Balance -80 - Medications Medications: Current Medications Albuterol/Ipratropium (Duoneb 3 Mg/0.5 Mg (3 Ml) Ud) 3 ml IH Q2H PRN PRN Reason: Shortness of Breath Glimepiride (Amaryl) 4 mg PO DAILY [facility] Heparin Sodium (Porcine) (Heparin) 5,000 units SC Q8 JENN[facility]ER; Protocol Last Admin: 03/27/18 06:46 Dose: 5,000 units Hydralazine HCl (Apresoline) 10 mg IVP Q6 PRN PRN Reason: Systolic Blood Pressure Last Admin: 03/26/18 17:00 Dose: 10 mg Insulin Human Regular 100 (units/ Sodium Chloride) 100 mls @ 3 mls/hr IV .Q24H PRN; Protocol PRN Reason: TITRATE PER MD ORDER Last Titration: 03/25/18 11:00 Dose: 0 units/hr, 0 mls/hr Levetiracetam (Keppra 500mg Ivpb) 500 mg in 100 mls @ 400 mls/hr IVPB Q12 [facility] Last Admin: 03/26/18 21:03 Dose: 400 mls/hr Dexmedetomidine HCl (Precedex 400mcg/100ml) 400 mcg in 100 mls @ 3.266 mls/hr IV .Q24H PRN; Protocol PRN Reason: Agitation Last Titration: 03/27/18 03:00 Dose: 0 mcg/kg/hr, 0 mls/hr Insulin Human Lispro (Humalog Med) 0 units SC ACHS [facility]ENN[facility]; Protocol Last Admin: 03/26/18 22:10 Dose: Not Given Lorazepam (Ativan) 1 mg IVP Q2H PRN; Protocol PRN Reason: Anxiety Last Admin: 03/26/18 17:56 Dose: 1 mg Metformin HCl (Glucophage) 500 mg PO BID [facility] Last Admin: 03/26/18 18:52 Dose: Not Given - Labs Labs: 03/27/18 06:00 03/27/18 06:00 PT 9.8 SECONDS (9.4-12.5) 03/25/18 05:40 INR 0.85 03/25/18 05:40 APTT 26.9 Seconds (25.1-36.5) 03/25/18 05:40 Attending/Attestation - Attestation I have personally seen and examined this patient.: Yes I have fully participated in the care of the patient.: Yes I have reviewed all pertinent clinical information, including history, physical exam and plan: Yes Notes (Text): Patient seen and examined by me with resident at 8:35 AM on 03/26/18 in the emergency room. Case including HPI, physical exam, and assessment and plan discussed with resident. Agree with above with following additions/corrections. Patient is a 62-year-old male with past medical history significant for COPD, asthma, tobacco abuse, and hypertension who was present to the emergency room for altered mental status. Patient more awake today. Very agitated over night and had to be placed on restraints. Patient on 1:1. Patient is denying any pain. States he came in for a seizure and has never had one in the past. Patient denies alcohol or drug use. However, UDS was positive for opiates. Patient is denying any chest pain or shortness of breath. No nausea, vomiting, or abdominal pain. Patient is afebrile. Not answering other questions. Unable to obtain full review of systems from patient. Patient is on video EEG. Physical exam: General: Awake and alert trying to get out of bed in restraints. HEENT: Normocephalic, atraumatic. Extraocular muscles intact, pupils equal and reactive, no scleral icterus. Oropharynx is pink. Positive dry mucous membranes. Neck is supple. Cardiovascular: Normal rhythm. Normal S1-S2. No murmurs, rubs, or gallops appreciated Pulmonary: Normal respiratory effort. No rhonchi, rales, or wheezing appreciated Gastrointestinal: Soft, nondistended. Nontender. Positive bowel sounds all 4 quadrants. No guarding. Musculoskeletal: Moves all extremities. No calf tenderness. No edema appreciated. Central nervous system: Awake and alert, responds to some questions. Dermatologic: Skin warm and dry. Assessment and plan: Patient is a 62-year-old male with past medical history significant for COPD, asthma, tobacco abuse, and hypertension who was present to the emergency room for altered mental status. 1. Toxic metabolic encephalopathy. Likely multifactorial. Improving. Questionable secondary to possible DKA versus seizure-like activity versus lactic acidosis. May be secondary to withdrawal from drug abuse, possible alcohol abuse. UDS is positive for opiates. Off insulin drip. Continue IV fluids. Continue to monitor Accu-Cheks. Beta hydroxybuytrate 0.16. Patient with HDL of 132 and elevated triglycerides of 195. Patient both alcohol abuse. Neurology following, recommendations appreciated. MRI brain pending. Video EEG results pending. Lactic acidosis improved. Head CT per radiologist showed no acute intracranial findings. CTA neck and brain per radiologist showed unremarkable CT angiography of the brain, no significant stenosis. Continue 1:1. 2. Newly diagnosed type 2 diabetes with DKA and lactic acidosis. Hemoglobin A1c 8.7. Contiue with insulin sliding scale. Jewelry Making Instructor following, recommendations appreciated. Continue to monitor Accu-Cheks. 3. SETH. Resolved. Continue to monitor. 4. Hypertension. Continue hydralazine as needed. Will need to be started on oral agents is tolerating. 5. COPD/asthma. Nebulizer treatments as needed. O2 via nasal cannula as needed 6. History of tobacco abuse/?drug use/alcohol use. Will need to gt more history when patient is no longer altered 7. DVT prophylaxis. Heparin.
[2018-03-26] MEDS ORDERED: Dexmedetomidine 400mcg/100mL 400 MCG/100 ML BOTTLE ONE (19:18)
[2018-03-26] MEDS: Dexmedetomidine 400mcg/100mL 400 MCG/100 ML BOTTLE IV PRN ×2 (19:30→22:23)
[2018-03-27 06:30] LABS: BASO # 0.04 K/mm3 (0.0-2.0); BASO % 0.5 % (0.0-3.0); EOS # 0.2 (0.0-0.7); EOS % 2.3 % (1.5-5.0); GRAN # 5.14 (1.4-6.5); GRAN % 62.2 % (50.0-68.0); HEMOGLOBIN 14.1 g/dL (14.0-18.0); LYMPH # 2.2 (1.2-3.4); LYMPH % 26.2 % (22.0-35.0); MEAN CELL VOLUME 89.5 fl (80.0-105.0); MEAN CORPUSCULAR HEMOGLOBIN 29.7 pg (25.0-35.0); MEAN CORPUSCULAR HGB CONC 33.2 g/dl (31.0-37.0); MEAN PLATELET VOLUME 10.3 fl (7.0-11.0); MONO # 0.7 (0.1-0.6); MONO % 8.8 % (1.0-6.0); RBC 4.75 10^6/uL (3.5-6.1); RED CELL DISTRIBUTION WIDTH 12.4 % (11.5-14.5); WHITE BLOOD COUNT 8.3 10^3/uL (4.5-11.0)
[2018-03-27 06:41] LABS: ALB/GLOB RATIO 1.1 (1.1-1.8); ALBUMIN 3.7 g/dL (3.0-4.8); ALT/SGPT 48 U/L (7-56); AST/SGOT 62 U/L (17-59); BLOOD UREA NITROGEN 13 mg/dL (7-21); GFR NON-AFRICAN AMERICAN > 60
[2018-03-27 06:59] LABS: CK-MB 4.4 ng/mL (0.0-3.6)
[2018-03-27] MEDS: Insulin Lispro (humaLOG) MEDIUM Coverage SC SCH ×4 (08:42→22:10)
--- NOTE | 2018-03-27 09:42 | PCM.VEEG ---
Video EEG - Procedure Start Date: 01/23/19 Start Time: 15:00 End Date: 03/26/18 End Time: 18:10 Technical Summary: DATA ACQUISITION: This was a multichannel inpatient video-EEG, a minimum of 22 channels were uti lized, performed in accordance with recommendations specified by the [place] [employer] Society (Kael Shahid et al. ACNS Guideline 1: Minimum Technical Requirements for Performing Clinical Electroencephalography. Journal of Clinical Neurophysiology 2016;33:303-7). The 10-20 electrode placement system was utilized in accordance with guidelines detailed by the International Federation of Clinical Neurophysiology (Terrance Mart et al. The Ten-Twenty Electrode System of the International Federation. Recommendations for the Practice of Clinical Neurophysiology: Guidelines of the International Federation of Clinical Physiology 1999; EEG Suppl. 52.). DATA REVIEW / SPIKE DETECTION / DIGITAL ANALYSIS: The entire EEG was scanned and reviewed. Synchronized audio and video recording were reviewed at the time of each alarm and whenever an abnormality or suspicious activity was noted. The entire recording was analyzed utilizing an automated digital spike and seizure analysis program and all automatic spike and seizure detections were manually reviewed. A compressed spectral array was displayed and reviewed alongside the raw EEG tracings. In addition, further analysis of the EEG was performed when abnormalities were identified, including montage changes, dipole source localization, and frequency band identification. Video portion of the study is necessary to correlate abnormal EEG activity with clinical behavior. This study was attended 24 hours per day. - Interpretation Description of the study: Indication; status epilepticus EEG Finding during wakefulness: During the awake states, the EEG was characterized by 10-12 Hz, 15-30 uV activity bilaterally in fronto-central regions. Resting wakefulness was characterized by a poorly developed posterior dominant rhythm of 6 to 7 Hz, 30-50 uV, which was poorly reactive to eye opening and closing, these was only seen during stimulation.. Drowsiness was associated with slow roving eye movements, slowing and fragmentation of the posterior dominant rhythm, and bilateral 4-7 Hz, 40-70 uV theta activity, sometimes with a shifting pr edominance. There was intermittent bifrontal rhythmic delta slowing at 3 to 4 Hz lasting 3 to 6 seconds mainly seen during drowsiness occasionally during wakefulness. EEG Finding during sleep: Normal sleep architecture was not see, when the patient was clinically asleep the EEG showed diffuse bilateral slowing at 4 to 5 Hz Interictal non-epileptiform abnormalities: None Interictal epileptiform abnormalities: None Ictal epileptiform abnormalities: None There were multiple PB activations; probably all accidental. - Impression Impression: This was an abnormal video EEG, monitoring study, due to the presence of: 1- Moderate to severe background slowing, and EEG disorganization. No episodes were capture. No seizures, Not in status epilepticus. INTERPRETATION: The above findings are in keeping with a moderate non specific diffuse disturbance of cortical activity. This is in keeping with a diffuse hernandez matter dysfunction. The findings do not suggest a specific etiology.
[2018-03-27] MEDS: levETIRAcetam 500mg IVPB 500 MG/100 ML BAG IVPB SCH ×2 (10:07→21:34)
--- NOTE | 2018-03-27 12:34 | PN ---
DATE: 03/27/2018 SUBJECTIVE: The patient is resting in bed with O2 via nasal cannula. At this time, he is getting p.r.n. Ativan as well as Precedex. The patient has a drug abuse history and states that he does take heroin. OBJECTIVE: VITAL SIGNS: Stable at this time and O2 saturation is 100%. His temperature is 98, pulse is 64, respirations of 20 and BP is 154/91. SKIN: Warm and dry. HEENT: Head is atraumatic, normocephalic. Eyes reactive to light. Ears, nose, and throat; seemed to be within normal limits. NECK: Supple. No JVD. No thyroid enlargement or lymph nodes. HEART: Has regular rate and rhythm. Normal S1, S2. LUNGS: Reveal good breath sounds bilaterally. ABDOMEN: Soft. Decreased bowel sounds. GENITALIA: Deferred. RECTAL: Deferred. MUSCULOSKELETAL: No joint deformities. EXTREMITIES: Reveal no edema. NEUROLOGIC: The patient is grossly intact. LABORATORY DATA: His white count is 8.3, hemoglobin is 14.1, hematocrit 42.5 with platelets of 261,000. Arterial blood gas pH of 7.42, pCO2 of 44, and pO2 of 192. Sodium is 140, potassium 4.3, chloride 108, CO2 of 25 with a glucose of 211, BUN of 13, and creatinine of 0.8. IMPRESSION AND PLAN: The patient presented with new onset seizure, has a history of diabetes as well as chronic obstructive pulmonary disease and hypertension. The patient is an active drug abuser and at this time seems to have some symptoms of drug withdrawal. The patient will continue on his hydralazine, his DuoNeb and subcu heparin. He will continue on his insulin as well. Note that he is on Ativan and Precedex and we will continue to treat aggressively along. Ativan and Precedex. He is also on his Keppra and IV solution. We will continue to treat aggressively along with the other consultants and the primary care doctor. Vickey Barber MD
--- NOTE | 2018-03-27 13:06 | CP.PCM.PN ---
<VitalyNikolay Boss - Last Filed: 03/27/18 13:47> Subjective - Date & Time of Evaluation Date of Evaluation: 03/27/18 Time of Evaluation: 09:00 - Subjective Subjective: Medicine progress note: Vitaly, PGY-2 Patient seen and examined at bedside. Patient apparently became agitated and restless overnight with precedex drip started. This morning on interview, patient more alert and oriented and providing some further history, admitting to heroin use. Still altered, however, so we will seek more information when he has recovered. Patient denies any complaints at present time, including chest pain, abdominal pain Objective - Vital Signs/Intake and Output Vital Signs (last 24 hours): Temp Pulse Resp BP Pulse Ox 97.5 F L 66 34 H 131/91 H 100 03/25/18 05:55 03/27/18 10:07 03/26/18 09:09 03/27/18 10:07 03/26/18 03:01 Intake and Output: 03/27/18 03/27/18 06:59 18:59 Intake Total 820 Output Total 900 Balance -80 - Medications Medications: Current Medications Albuterol/Ipratropium (Duoneb 3 Mg/0.5 Mg (3 Ml) Ud) 3 ml IH Q2H PRN PRN Reason: Shortness of Breath Glimepiride (Amaryl) 4 mg PO ACBD JENNIFER Heparin Sodium (Porcine) (Heparin) 5,000 units SC Q8 JENNIFER; Protocol Last Admin: 03/27/18 06:46 Dose: 5,000 units Hydralazine HCl (Apresoline) 10 mg IVP Q6 PRN PRN Reason: Systolic Blood Pressure Last Admin: 03/26/18 17:00 Dose: 10 mg Insulin Human Regular 100 (units/ Sodium Chloride) 100 mls @ 3 mls/hr IV .Q24H PRN; Protocol PRN Reason: TITRATE PER MD ORDER Last Titration: 03/25/18 11:00 Dose: 0 units/hr, 0 mls/hr Levetiracetam (Keppra 500mg Ivpb) 500 mg in 100 mls @ 400 mls/hr IVPB Q12 JENNIFER Last Admin: 03/27/18 10:07 Dose: 400 mls/hr Dexmedetomidine HCl (Precedex 400mcg/100ml) 400 mcg in 100 mls @ 3.266 mls/hr IV .Q24H PRN; Protocol PRN Reason: Agitation Last Titration: 03/27/18 03:00 Dose: 0 mcg/kg/hr, 0 mls/hr Insulin Human Lispro (Humalog Med) 0 units SC ACHS JENNIFER; Protocol Last Admin: 03/27/18 08:42 Dose: 3 u Lisinopril (Zestril) 5 mg PO DAILY JENNIFER Last Admin: 03/27/18 10:07 Dose: 5 mg Lorazepam (Ativan) 1 mg IVP Q2H PRN; Protocol PRN Reason: Anxiety Last Admin: 03/27/18 10:10 Dose: 1 mg Metformin HCl (Glucophage) 500 mg PO BID JENNIFER Last Admin: 03/27/18 10:09 Dose: 500 mg - Labs Labs: 03/27/18 06:00 03/27/18 06:00 PT 9.8 SECONDS (9.4-12.5) 03/25/18 05:40 INR 0.85 03/25/18 05:40 APTT 26.9 Seconds (25.1-36.5) 03/25/18 05:40 Assessment and Plan - Assessment and Plan (Free Text) Assessment: Pt is a 62 yo male with no PMH who presented with possible seizure like activity and AMS likely a result of DKA which may have been precipitated by alcohol withdrawal, heroin overdose, or seizure. Plan Toxic Metabolic Encephalopathy, likely 2/2 Multifactorial Etiology Patient's AMS could be due to several factors including opiate use, as tox screen was positive and patient now admits to heroin use, as well as due to DKA. It could also be due to lactic acidosis which could be caused by the seizure activity which was precipitated by alcohol withdrawal or heroin overdose. Note that video EEG was read as no seizure activity, so at this point the AMS is most likely 2/2 DKA, Heroin OD, and possible Alcohol withdrawal. - Beta hydoxybutyrate follow up - MRI Brain w/o contrast follow up - Seizure precautions; 1:1 Sitter - Keppra for seizures - Neuro consult: Dr. Covarrubias/Dr. Hawkins, seizure activity likely secondary to DKA DKA - Resolved - Insulin drip stopped, patient now on oral insulin - Continue FS ACHS with RISS Medium Newly Diagnosed DM - Glimepiride 4mg PO - Metformin 500 BID - RISS Medium with FS ACHS - Endo Consult: Dr. Martinez, rec discontinue insulin drip, oral hypoglycemic therapy Asthma/COPD - Duonebs PRN HTN - Hydralazine 10mg IVP q6 PRN - Start Lisinopril 5 daily Tobacco Abuse - Advised cessation Heroin Abuse - Advised Cessation Ppx - Heparin <MartinezBurakGiulia R - Last Filed: 03/27/18 17:30> Objective - Vital Signs/Intake and Output Vital Signs (last 24 hours): Temp Pulse Resp BP Pulse Ox 97.5 F L 78 20 158/94 H 100 03/25/18 05:55 03/27/18 14:58 03/27/18 14:58 03/27/18 14:00 03/27/18 14:50 Intake and Output: 03/27/18 03/27/18 06:59 18:59 Intake Total 820 Output Total 900 Balance -80 - Medications Medications: Current Medications Albuterol/Ipratropium (Duoneb 3 Mg/0.5 Mg (3 Ml) Ud) 3 ml IH Q2H PRN PRN Reason: Shortness of Breath Amlodipine Besylate (Norvasc) 10 mg PO DAILY JENNIFER Glimepiride (Amaryl) 4 mg PO ACBD JENNIFER Last Admin: 03/27/18 16:42 Dose: 4 mg Heparin Sodium (Porcine) (Heparin) 5,000 units SC Q8 JENNIFER; Protocol Last Admin: 03/27/18 14:20 Dose: 5,000 units Hydralazine HCl (Apresoline) 10 mg IVP Q6 PRN PRN Reason: Systolic Blood Pressure Last Admin: 03/26/18 17:00 Dose: 10 mg Insulin Human Regular 100 (units/ Sodium Chloride) 100 mls @ 3 mls/hr IV .Q24H PRN; Protocol PRN Reason: TITRATE PER MD ORDER Last Titration: 03/25/18 11:00 Dose: 0 units/hr, 0 mls/hr Levetiracetam (Keppra 500mg Ivpb) 500 mg in 100 mls @ 400 mls/hr IVPB Q12 JENNIFER Last Admin: 03/27/18 10:07 Dose: 400 mls/hr Insulin Human Lispro (Humalog Med) 0 units SC ACHS [facility]; Protocol Last Admin: 03/27/18 08:42 Dose: 3 u Lorazepam (Ativan) 1 mg IVP Q2H PRN; Protocol PRN Reason: Anxiety Last Admin: 03/27/18 10:10 Dose: 1 mg Metformin HCl (Glucophage) 500 mg PO BID JENNIFER Last Admin: 03/27/18 10:09 Dose: 500 mg - Labs Labs: 03/27/18 06:00 03/27/18 06:00 PT 9.8 SECONDS (9.4-12.5) 03/25/18 05:40 INR 0.85 03/25/18 05:40 APTT 26.9 Seconds (25.1-36.5) 03/25/18 05:40 Attending/Attestation - Attestation I have personally seen and examined this patient.: Yes I have fully participated in the care of the patient.: Yes I have reviewed all pertinent clinical information, including history, physical exam and plan: Yes Notes (Text): Patient seen and examined by me with resident at 8:20 AM on 03/27/18 in the emergency room. Case including HPI, physical exam, and assessment and plan discussed with resident. Agree with above with following additions/corrections. Patient is a 62-year-old male with past medical history significant for COPD, asthma, tobacco abuse, and hypertension who was present to the emergency room for altered mental status. Patient more responsive today. However, slow to respond and still with some confusion. Patient still on 1:1. Patient today admits to using heroin but unable to say how much. Uses on a regular basis. Patinet is denying alcohol use. He denies any chest pain or shortness of breath. No nausea, vomiting, or abdominal pain. States he is coughing a little. Patient is afebrile. Denies dysuria. No diarrhea or constipation. Patient was placed on precedex drip overnight for agitation. Physical exam: General: Awake and alert lying in bed in no acute distress. HEENT: Normocephalic, atraumatic. Extraocular muscles intact, pupils equal and reactive, no scleral icterus. Oropharynx is pink. Positive dry mucous membranes. Neck is supple. Cardiovascular: Normal rhythm. Normal S1-S2. No murmurs, rubs, or gallops appreciated Pulmonary: Normal respiratory effort. No rhonchi, rales, or wheezing appreciated Gastrointestinal: Soft, nondistended. Nontender. Positive bowel sounds all 4 quadrants. No guarding. Musculoskeletal: Moves all extremities. No calf tenderness. No edema appreciated. Central nervous system: Awake and alert, responds to some questions. Slow to respond. With some confusion. Dermatologic: Skin warm and dry. Assessment and plan: Patient is a 62-year-old male with past medical history significant for COPD, asthma, tobacco abuse, and hypertension who was present to the emergency room for altered mental status. 1. Toxic metabolic encephalopathy. Likely multifactorial. Improving. Likely secondary to DKA, seizure, lactic acidosis, and heroin drug abuse/withdrawal. UDS is positive for opiates. Patient today admits to regular heroin use. S/P precedex drip overnight. Off insulin drip. Continue to monitor Accu-Cheks. Beta hydroxybuytrate 0.16. Patient with HDL of 132 and elevated triglycerides of 195. Patient denies alcohol abuse. Neurology following, recommendations appreciated. MRI brain results pending. Video EEG results per neurologist shows moderate n onspecific diffuse disturbance of cortical activity, this is in keeping with a diffuse hernandez matter dysfunction, the findings do not suggest a specific etiology. Lactic acidosis improved. Head CT per radiologist showed no acute intracranial findings. CTA neck and brain per radiologist showed unremarkable CT angiography of the brain, no significant stenosis. Continue 1:1. 2. Newly diagnosed type 2 diabetes with DKA and lactic acidosis. DKA resolved. Hemoglobin A1c 8.7. Contiue with insulin sliding scale. Clerk Stenographer following, recommendations appreciated. Continue glimiperide and metformin. Continue to monitor Accu-Cheks. Will need diabetic education. 3. Seizure. Neurology following, Continue Keppra. EEG as above. MRI brain results pending. 4. SETH. Resolved. Continue to monitor. 5. Hypertension. Continue hydralazine as needed. Started on Norvasc. 6. COPD/asthma. Nebulizer treatments as needed. O2 via nasal cannula as needed 7. History of tobacco abuse. Patient counseled on cessation. 8. History of heorin abuse. Patient counseled on cessation. 9. DVT prophylaxis. Heparin.
--- NOTE | 2018-03-27 20:31 | PN ---
DATE: 03/27/2018 ENDOCRINOLOGY FOLLOWUP NOTE LOCATION: ICU 129, Room 4. SUBJECTIVE: This is a 62-year-old male with apparent recent seizure event, currently undergoing neurological workup and management and is also being followed closely for recent onset and evaluation of uncontrolled type 2 insulin-requiring diabetes. His glycemic levels are fluctuating but improved and the glucose values overnight have ranged from 211 to 214 mg/dl. His bedtime glucose was 204 mg/dl. His chemistry showed a BUN of 13, sodium 140, potassium 4.3, chloride 108, CO2 of 25, glucose 210 and creatinine 0.8. ASSESSMENT: This is a 62-year-old male with uncontrolled and decompensated type 2 diabetes, insulin-requiring, and hopefully will continue to improve on just a combination of oral hypoglycemic therapy as given with the low-dose correction scale using Humalog insulin as ordered. He is undergoing a full neurological workup for recent onset of generalized seizure event as noted. PLAN OF MANAGEMENT: We will modify his current oral hypoglycemic drug combination and increase the Amaryl to 4 mg twice daily before meals as ordered. We will also continue the metformin given as 500 mg twice daily after meals as ordered. We will continue the low-dose correction scale using Humalog insulin as given. We will obtain serial chemistries and supplement accordingly as needed. We will follow. Arianne Martinez MD
[2018-03-28 07:11] LABS: BASO # 0.04 K/mm3 (0.0-2.0); BASO % 0.4 % (0.0-3.0); EOS # 0.1 (0.0-0.7); EOS % 0.9 % (1.5-5.0); GRAN # 5.96 (1.4-6.5); GRAN % 66.4 % (50.0-68.0); HEMOGLOBIN 14.8 g/dL (14.0-18.0); LYMPH # 2.1 (1.2-3.4); MEAN CELL VOLUME 88.5 fl (80.0-105.0); MEAN CORPUSCULAR HEMOGLOBIN 29.9 pg (25.0-35.0); MEAN CORPUSCULAR HGB CONC 33.8 g/dl (31.0-37.0); MONO # 0.8 (0.1-0.6); MONO % 9.3 % (1.0-6.0); RBC 4.95 10^6/uL (3.5-6.1); RED CELL DISTRIBUTION WIDTH 12.5 % (11.5-14.5)
[2018-03-28 07:36] LABS: ALB/GLOB RATIO 1.1 (1.1-1.8); ALT/SGPT 62 U/L (7-56); AST/SGOT 75 U/L (17-59); BLOOD UREA NITROGEN 17 mg/dL (7-21); CALCIUM 9.3 mg/dL (8.4-10.5); GFR NON-AFRICAN AMERICAN > 60
--- NOTE | 2018-03-28 07:37 | CP.PCM.PN ---
Subjective - Date & Time of Evaluation Date of Evaluation: 03/28/18 Time of Evaluation: 07:35 - Subjective Subjective: Pt seen and examined at bedside this morning in the ICU. Per nursing, pt very agitated last night, Dr Hernandez restarted Precedex drip and given ativan. Pt has recently admitted to heroin prior to arrival. Objective - Vital Signs/Intake and Output Vital Signs (last 24 hours): Temp Pulse Resp BP Pulse Ox 98 F 96 H 22 169/77 H 99 03/28/18 06:00 03/28/18 06:40 03/28/18 06:40 03/28/18 06:00 03/28/18 06:40 Intake and Output: 03/28/18 03/28/18 06:59 18:59 Intake Total 250 Balance 250 - Medications Medications: Current Medications Acetaminophen (Tylenol 325mg Tab) 650 mg PO Q6H PRN PRN Reason: Fever >100.4 F Albuterol/Ipratropium (Duoneb 3 Mg/0.5 Mg (3 Ml) Ud) 3 ml IH Q2H PRN PRN Reason: Shortness of Breath Amlodipine Besylate (Norvasc) 10 mg PO DAILY JENNIFER Glimepiride (Amaryl) 4 mg PO ACBD JENNIFER Last Admin: 03/27/18 16:42 Dose: 4 mg Heparin Sodium (Porcine) (Heparin) 5,000 units SC Q8 JENNIFER; Protocol Last Admin: 03/28/18 05:34 Dose: 5,000 units Hydralazine HCl (Apresoline) 10 mg IVP Q6 PRN PRN Reason: Systolic Blood Pressure Last Admin: 03/28/18 05:33 Dose: 10 mg Insulin Human Regular 100 (units/ Sodium Chloride) 100 mls @ 3 mls/hr IV .Q24H PRN; Protocol PRN Reason: TITRATE PER MD ORDER Last Titration: 03/25/18 11:00 Dose: 0 units/hr, 0 mls/hr Levetiracetam (Keppra 500mg Ivpb) 500 mg in 100 mls @ 400 mls/hr IVPB Q12 JENNIFER Last Admin: 03/27/18 21:34 Dose: 400 mls/hr Insulin Human Lispro (Humalog Med) 0 units SC ACHS JENNIFER; Protocol Last Admin: 03/27/18 22:10 Dose: Not Given Lorazepam (Ativan) 1 mg IVP Q2H PRN; Protocol PRN Reason: Anxiety Last Admin: 03/28/18 01:45 Dose: 1 mg Metformin HCl (Glucophage) 500 mg PO BID JENNIFER Last Admin: 03/27/18 10:09 Dose: 500 mg - Labs Labs: 03/28/18 06:30 03/27/18 06:00 PT 9.8 SECONDS (9.4-12.5) 03/25/18 05:40 INR 0.85 03/25/18 05:40 APTT 26.9 Seconds (25.1-36.5) 03/25/18 05:40
[2018-03-28] MEDS: Insulin Lispro (humaLOG) MEDIUM Coverage SC SCH (08:10)
[2018-03-28] MEDS ORDERED: Metoprolol 1 mg/ml Inj IVP STA (09:48)
[2018-03-28] MEDS: levETIRAcetam 500mg IVPB 500 MG/100 ML BAG IVPB SCH (10:12)
--- NOTE | 2018-03-28 10:17 | MRI ---
Date of service: 03/27/2018 PROCEDURE: MRI BRAIN WITHOUT CONTRAST HISTORY: code stroke COMPARISON: None available. TECHNIQUE: Multiplanar, multisequence MR images of the brain were obtained without intravenous contrast enhancement. FINDINGS: HEMORRHAGE: None DWI: No evidence of an acute or early subacute infarction. BRAIN PARENCHYMA: No mass effect or edema. Severe chronic microvascular changes are seen as well as chronic lacunar infarcts in the left thalamus and right side of the jovan. VENTRICLES: Unremarkable. No hydrocephalus. CRANIUM: Unremarkable. ORBITS: Grossly unremarkable. PARANASAL SINUSES/MASTOIDS: Clear VASCULAR SYSTEM: Skull base flow voids intact. OTHER FINDINGS: The report concurs with the preliminary [facility] report IMPRESSION: Severe chronic microvascular changes are seen as well as chronic lacunar infarcts in the left thalamus and right side of the jovan. No acute intracranial findings
--- NOTE | 2018-03-28 10:45 | CON ---
DATE: 03/28/2018 HISTORY OF PRESENT ILLNESS: The patient is a 62-year-old male who has almost psychiatric history, though does have a 30-year history of heroin dependency who was admitted to the CCU after he presented to the ER followed by EMS for seizure-like activity as witnessed by his family. Psychiatrist called to evaluate his mental status and his heroin use. Apparently, the patient's had episodes of agitation and required restraints and observation, no response to redirection. He is little bit confused, restless and disoriented as well as combative. I met with patient at bedside, he is much improved in his mental status. He is cooperative with my questioning and appears calm at this time. He is oriented to his location, month and although initially reports the year is 2003, he is aware that it is 2018. The patient is aware of circumstances of his hospitalization; however, he does not recall the events that led to his presentation to the ER. His last memory is actually waking up in the hospital. Apparently, the patient was in the living room with his mother and his mother witnessed the patient having a seizure. The patient does admit to missing heroin and he does this daily and he has been sniffing heroin that day. He uses approximately 1 bag daily. The patient denies having any prior history of seizure-like activity, and he denies any changes in his p.o. intake or any changes in his drug use or any alcohol use. The patient realizes that heroin he had sniffed that day was probably laced. The patient denies any depression or excess stress. He except for that related to his ongoing heroin use, he is not feeling sedated, he is not and currently no behavioral issues noted by this provider and his thought process is coherent and responses are relevant with repeated questioning. His insight and judgment are much improved. Vital signs and labs were reviewed. The patient is not on any psychiatric medications at this time. PAST PSYCHIATRIC HISTORY: The patient denies any prior psychiatric history including hospitalization, suicide attempts or outpatient psychiatric treatment. SOCIAL HISTORY: The patient is . He has 1 son who is close, son is 34 years old and he resides with his mother and only his mother. 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 He reports the 30-year heroin dependency he uses a only bag a day intranasally. He denies any drug or other alcohol use. The patient reports that he has been incarcerated in the past for period of 4 years for drug charges. IMPRESSION: Opioid use disorder severe 30 years, delirium versus postictal confusion and currently improving. RECOMMENDATIONS: The patient is currently improved; however, I cannot rule out that this is lucid face of delirium process. The patient becomes agitated, confused and disoriented again. He may provide Haldol to with Ativan 1 mg p.r.n. every 6. The patient is interested in substance abuse options including naltrexone and he should be given referrals by social work for substance abuse counseling and treatments. Psychiatrically, he denies having any current psychiatric symptoms, does not meet criteria for voluntary psychiatric admissions. In this respect, psychiatry will sign off, please reconsult p.r.n. I emphasized the patient should be given substance abuse counseling and treatment facility referrals once he is medically cleared and patient is interested in this option. Alexi Augustin MD
[2018-03-28 14:05] VITALS: O2SAT 97
[2018-03-28 16:12] LABS: HEPATITIS B SURFACE AG Negative (NEGATIVE)
[2018-03-28 16:17] LABS: HEPATITIS A IGM NEGATIVE (NEGATIVE)
[2018-03-28 16:18] LABS: HEPATITIS B CORE AB NEGATIVE (NEGATIVE)
--- NOTE | 2018-03-28 16:35 | CP.PCM.DIS ---
<BravoGabe Anglin - Last Filed: 03/28/18 18:40> Provider - Provider Date of Admission: 03/25/18 06:43 Attending physician: Bri Yao MD Primary care physician: Ken Taveras MD Consults: 03/25/18 05:12 Stroke Team Consult Stat Comment: Consulting Provider: Neurohospitalist Consulting Physician: NEUROHOSP Neurohospitalist for Consult: Zackery Hawkins Neurohospitalist for Consult: Logan Covarrubias Reason for Consult: code stroke 03/25/18 09:28 Physician Consult Routine Comment: Consulting Provider: Arianne Martinez Consulting Physician: Arianne Martinez Reason for Consult: dka, new onset diabetes 03/27/18 12:06 Physician Consult Routine Comment: Consulting Provider: Alexi Augustin Consulting Physician: Alexi Augustin Reason for Consult: evaulation of mental state, hx of heroin abuse 03/28/18 09:37 Diabetic Education Referral Routine Comment: Physician Instructions: Reason For Exam: newly diagnosed DM Time Spent in preparation of Discharge (in minutes): 35 Diagnosis - Discharge Diagnosis (1) Altered mental status Status: Acute Priority: High (2) DKA (diabetic ketoacidoses) Status: Acute Priority: High (3) Heroin abuse Status: Chronic Priority: High (4) New onset seizure Status: Acute Priority: High (5) Asthma Status: Chronic Priority: High (6) COPD (chronic obstructive pulmonary disease) Status: Chronic Priority: High Hospital Course - Lab Results Lab Results: Micro Results 03/25/18 16:15 Naris MRSA Culture (Admit) - Final MRSA NOT DETECTED 03/25/18 06:05 Urine Random Urine Culture - Final No Growth (<1,000 CFU/ML) Most Recent Lab Values WBC 9.0 10^3/uL (4.5-11.0) 03/28/18 06:30 RBC 4.95 10^6/uL (3.5-6.1) 03/28/18 06:30 Hgb 14.8 g/dL (14.0-18.0) 03/28/18 06:30 Hct 43.8 % (42.0-52.0) 03/28/18 06:30 MCV 88.5 fl (80.0-105.0) 03/28/18 06:30 MCH 29.9 pg (25.0-35.0) 03/28/18 06:30 MCHC 33.8 g/dl (31.0-37.0) 03/28/18 06:30 RDW 12.5 % (11.5-14.5) 03/28/18 06:30 Plt Count 280 10^3/uL (120.0-450.0) 03/28/18 06:30 MPV 10.0 fl (7.0-11.0) 03/28/18 06:30 Gran % 66.4 % (50.0-68.0) 03/28/18 06:30 Lymph % (Auto) 23.0 % (22.0-35.0) 03/28/18 06:30 Parmer % (Auto) 9.3 % (1.0-6.0) H 03/28/18 06:30 Eos % (Auto) 0.9 % (1.5-5.0) L 03/28/18 06:30 Baso % (Auto) 0.4 % (0.0-3.0) 03/28/18 06:30 Gran # 5.96 (1.4-6.5) 03/28/18 06:30 Lymph # (Auto) 2.1 (1.2-3.4) 03/28/18 06:30 Parmer # (Auto) 0.8 (0.1-0.6) H 03/28/18 06:30 Eos # (Auto) 0.1 (0.0-0.7) 03/28/18 06:30 Baso # (Auto) 0.04 K/mm3 (0.0-2.0) 03/28/18 06:30 PT 9.8 SECONDS (9.4-12.5) 03/25/18 05:40 INR 0.85 03/25/18 05:40 APTT 26.9 Seconds (25.1-36.5) 03/25/18 05:40 pO2 192 mm/Hg (30-55) H 03/25/18 09:30 VBG pH 7.42 (7.32-7.43) 03/25/18 09:30 VBG pCO2 44.0 (40-60) 03/25/18 09:30 VBG HCO3 28.5 mmol/l (21-28) H 03/25/18 09:30 VBG Total CO2 29.9 mmol.L (22-28) H 03/25/18 09:30 VBG O2 Sat (Calc) 100.1 % (40-65) H 03/25/18 09:30 VBG Base Excess 3.4 mmol/L (0.0-2.0) H 03/25/18 09:30 VBG Potassium 3.8 mmol/L (3.6-5.2) 03/25/18 09:30 Sodium 138.0 mmol/L (132-148) 03/25/18 09:30 Chloride 102.0 mmol/L (98-107) 03/25/18 09:30 Glucose 253 mg/dl (75-110) H 03/25/18 09:30 Lactate 4.1 mmol/L (0.7-2.1) H* 03/25/18 09:30 FiO2 21.0 % 03/25/18 09:30 Crit Value Called To Erika 03/25/18 09:30 Crit Value Called By 03/25/18 09:30 Blood Gas Notified Time 950 03/25/18 09:30 Sodium 141 mmol/L (132-148) 03/28/18 06:30 Potassium 3.6 mmol/L (3.6-5.0) 03/28/18 06:30 Chloride 111 mmol/L (98-107) H 03/28/18 06:30 Carbon Dioxide 21 mmol/L (21-33) 03/28/18 06:30 Anion Gap 13 (10-20) 03/28/18 06:30 BUN 17 mg/dL (7-21) 03/28/18 06:30 Creatinine 0.8 mg/dl (0.8-1.5) 03/28/18 06:30 Est GFR ( Amer) > 60 03/28/18 06:30 Est GFR (Non-Af Amer) > 60 03/28/18 06:30 POC Glucose (mg/dL) 167 mg/dL (65-110) H 03/28/18 11:19 Random Glucose 166 mg/dL (70-110) H 03/28/18 06:30 Hemoglobin A1c 8.7 % (4.2-6.5) H 03/25/18 05:40 Calcium 9.3 mg/dL (8.4-10.5) 03/28/18 06:30 Phosphorus 2.2 mg/dL (2.5-4.5) L 03/26/18 05:30 Magnesium 1.9 mg/dL (1.7-2.2) 03/26/18 05:30 Total Bilirubin 1.2 mg/dL (0.2-1.3) 03/28/18 06:30 AST 75 U/L (17-59) H D 03/28/18 06:30 ALT 62 U/L (7-56) H 03/28/18 06:30 Alkaline Phosphatase 95 U/L (38-126) 03/28/18 06:30 Total Creatine Kinase 453 U/L (35-230) H 03/28/18 06:30 CK-MB (CK-2) 3.0 ng/mL (0.0-3.6) 03/28/18 06:30 CK-MB (CK-2) % 0.6 % (2.5-3.0) L 03/26/18 05:30 Troponin I 0.05 ng/mL D 03/25/18 11:50 Total Protein 7.6 g/dL (5.8-8.3) 03/28/18 06:30 Albumin 4.0 g/dL (3.0-4.8) 03/28/18 06:30 Globulin 3.6 gm/dL 03/28/18 06:30 Albumin/Globulin Ratio 1.1 (1.1-1.8) 03/28/18 06:30 Triglycerides 195 mg/dL (35-160) H 03/25/18 05:40 Cholesterol 237 mg/dL (130-200) H 03/25/18 05:40 LDL Cholesterol Direct 72 mg/dL (0-129) 03/25/18 05:40 HDL Cholesterol 132 mg/dL (29-60) H 03/25/18 05:40 Venous Blood Potassium 3.8 mmol/L (3.6-5.2) 03/25/18 09:30 Urine Color Yellow (YELLOW) 03/25/18 06:05 Urine Appearance Clear (CLEAR) 03/25/18 06:05 Urine pH 6.0 (4.7-8.0) 03/25/18 06:05 Ur Specific Conception >= 1.030 (1.005-1.035) 03/25/18 06:05 Urine Protein Trace mg/dL (<30 mg/dL) H 03/25/18 06:05 Urine Glucose (UA) >=1000 mg/dL (NEGATIVE) 03/25/18 06:05 Urine Ketones Trace mg/dL (NEGATIVE) H 03/25/18 06:05 Urine Blood Trace-intact (NEGATIVE) H 03/25/18 06:05 Urine Nitrate Negative (NEGATIVE) 03/25/18 06:05 Urine Bilirubin Negative (NEGATIVE) 03/25/18 06:05 Urine Urobilinogen 0.2 E.U./dL (<1 E.U./dL) 03/25/18 06:05 Ur Leukocyte Esterase Negative Haydee/uL (NEGATIVE) 03/25/18 06:05 Urine RBC 0 - 2 /hpf (0-2) 03/25/18 06:05 Urine WBC 0 - 2 /hpf (0-6) 03/25/18 06:05 Ur Epithelial Cells 0 - 2 /hpf (0-5) 03/25/18 06:05 Amorphous Sediment Moderate /hpf (NONE) 03/25/18 06:05 Urine Bacteria Occ /hpf (NONE) 03/25/18 06:05 Urine Opiates Screen Positive (NEGATIVE) H 03/25/18 06:05 Urine Methadone Screen Negative (NEGATIVE) 03/25/18 06:05 Ur Barbiturates Screen Negative (NEGATIVE) 03/25/18 06:05 Ur Phencyclidine Scrn Negative (NEGATIVE) 03/25/18 06:05 Ur Amphetamines Screen Negative (NEGATIVE) 03/25/18 06:05 U Benzodiazepines Scrn Negative (NEGATIVE) 03/25/18 06:05 U Oth Cocaine Metabols Negative (NEGATIVE) 03/25/18 06:05 U Cannabinoids Screen Negative (NEGATIVE) 03/25/18 06:05 B-Hydroxybutyrate 0.16 mM (0.02-0.27) 03/25/18 05:40 Hepatitis A IgM Ab Negative (NEGATIVE) 03/28/18 09:50 Hep Bs Antigen Negative (NEGATIVE) 03/28/18 09:50 Hep B Core IgM Ab Negative (NEGATIVE) 03/28/18 09:50 Blood Type B POSITIVE 03/25/18 06:49 Blood Type Confirm B POSITIVE 03/25/18 11:50 Antibody Screen Negative 03/25/18 06:49 BBK History Checked No verified bt 03/25/18 06:49 - Hospital Course Hospital Course: Upon Arrival Pt is a 62yo male with no PMH presented to the ED with AMS. History has been obtained per chart review and discussion with night physicians, as patient is too altered to provide history. Patient apparently had seizure like activity and was brought in by family. ED course included ativan and Keppra, and work up revealed trace ketones in urine as well as sugars in the 400s. Hospitalization Pt was admitted to the ICU. He was treated for DKA for newly diagnosed DM. Pt was placed on video EEG. MRI did not show any acute intracranial pathology. Pt was placed on Keppra for seizures. Neuro was consulted, Dr Hawkins/ Satish. Discharge Pt advised to please follow up with primary care physician within 5 days. Please abstain from heroin and tobacco use, as we discussed. Please follow up with Endocrinology - discuss options with your primary care physician. Please make sure to check blood sugar before meals and before bedtime. Pt has a new diagnosis of Diabetes Mellitus. We are giving new prescriptions for this diagnosis: Metformin one tablet twice a day. Amaryl - one tablet before each meal only twice a day. We have adjusted Blood Pressure medications. Discontinue Clonidine Start Lopressor, one tablet twice a day Increase your Norvasc from 5 to 10 mg (still one tablet once a day) Please adequately manage sugars. - Date & Time of H&P Date of H&P: 03/28/18 Time of H&P: 07:00 Discharge Exam - Head Exam Head Exam: ATRAUMATIC, NORMOCEPHALIC - Eye Exam Eye Exam: EOMI - ENT Exam ENT Exam: Mucous Membranes Moist - Neck Exam Neck exam: Full Rom - Respiratory Exam Respiratory Exam: NORMAL BREATHING PATTERN, UNREMARKABLE. absent: Accessory Muscle Use, Respiratory Distress - Cardiovascular Exam Cardiovascular Exam: RRR, +S1, +S2. absent: Diastolic murmur, Systolic Murmur - GI/Abdominal Exam GI & Abdominal Exam: Normal Bowel Sounds, Unremarkable. absent: Tenderness - Extremities Exam Extremities exam: full ROM - Neurological Exam Neurological exam: Alert - Psychiatric Exam Psychiatric exam: Normal Affect, Normal Mood - Skin Skin Exam: Dry, Normal Color, Warm Discharge Plan - Discharge Medications Prescriptions: Albuterol HFA [Ventolin HFA 90 mcg/actuation (8 g)] 2 puff IH [id number] PRN #1 inhaler PRN Reason: asthma amLODIPine [Norvasc] 10 mg PO DAILY #30 tab Glimepiride [amaRYL] 4 mg PO ACBD #30 tab metFORMIN [glucOPHAGE] 500 mg PO BID #60 tab Metoprolol Tartrate [Lopressor] 50 mg PO BID #30 tab - Follow Up Plan Condition: SERIOUS Disposition: HOME/ ROUTINE Instructions: Diabetes Exchange Diet, Seizures, Adult (DC), Altered Mental Status (DC), Drug Abuse and Drug Addiction (DC), Asthma (DC), Asthma (GEN), Diabetic Ketoacidosis (DC), Diabetic Ketoacidosis (GEN), Altered Mental Status (GEN) Additional Instructions: Please follow up with your primary care physician within 5 days. Please abstain from heroin and tobacco use, as we discussed. Please follow up with Endocrinology - you may discuss options with your primary care physician. Please make sure to check your blood sugar before meals and before bedtime. Please also check your blood pressure. You have a new diagnosis of Diabetes Mellitus. We are giving you new prescriptions for this diagnosis: Metformin one tablet twice a day Amaryl - one tablet before each meal only twice a day We have adjusted your Blood Pressure medications. Discontinue Clonidine Start Lopressor, one tablet twice a day Increase your Norvasc from 5 to 10 mg (still one tablet once a day) Please adequately manage your sugars Please report to the emergency room immediately if your symptoms return Referrals: Ken Taveras MD [Primary Care Provider] - <Bri Yao - Last Filed: 03/29/18 14:49> Provider - Provider Date of Admission: 03/25/18 06:43 Attending physician: Bri Yao MD Primary care physician: Ken Taveras MD Consults: 03/25/18 05:12 Stroke Team Consult Stat Comment: Consulting Provider: Neurohospitalist Consulting Physician: NEUROHOSP Neurohospitalist for Consult: Zackery Hawkins Neurohospitalist for Consult: Logan Covarrubias Reason for Consult: code stroke 03/25/18 09:28 Physician Consult Routine Comment: Consulting Provider: Arianne Martinez Consulting Physician: Arianne Martinez Reason for Consult: dka, new onset diabetes 03/27/18 12:06 Physician Consult Routine Comment: Consulting Provider: Alexi Augustin Consulting Physician: Alexi Augustin Reason for Consult: evaulation of mental state, hx of heroin abuse 03/28/18 09:37 Diabetic Education Referral Routine Comment: Physician Instructions: Reason For Exam: newly diagnosed DM Hospital Course - Lab Results Lab Results: Micro Results 03/25/18 16:15 Naris MRSA Culture (Admit) - Final MRSA NOT DETECTED 03/25/18 06:05 Urine Random Urine Culture - Final No Growth (<1,000 CFU/ML) Most Recent Lab Values WBC 9.0 10^3/uL (4.5-11.0) 03/28/18 06:30 RBC 4.95 10^6/uL (3.5-6.1) 03/28/18 06:30 Hgb 14.8 g/dL (14.0-18.0) 03/28/18 06:30 Hct 43.8 % (42.0-52.0) 03/28/18 06:30 MCV 88.5 fl (80.0-105.0) 03/28/18 06:30 MCH 29.9 pg (25.0-35.0) 03/28/18 06:30 MCHC 33.8 g/dl (31.0-37.0) 03/28/18 06:30 RDW 12.5 % (11.5-14.5) 03/28/18 06:30 Plt Count 280 10^3/uL (120.0-450.0) 03/28/18 06:30 MPV 10.0 fl (7.0-11.0) 03/28/18 06:30 Gran % 66.4 % (50.0-68.0) 03/28/18 06:30 Lymph % (Auto) 23.0 % (22.0-35.0) 03/28/18 06:30 Parmer % (Auto) 9.3 % (1.0-6.0) H 03/28/18 06:30 Eos % (Auto) 0.9 % (1.5-5.0) L 03/28/18 06:30 Baso % (Auto) 0.4 % (0.0-3.0) 03/28/18 06:30 Gran # 5.96 (1.4-6.5) 03/28/18 06:30 Lymph # (Auto) 2.1 (1.2-3.4) 03/28/18 06:30 Parmer # (Auto) 0.8 (0.1-0.6) H 03/28/18 06:30 Eos # (Auto) 0.1 (0.0-0.7) 03/28/18 06:30 Baso # (Auto) 0.04 K/mm3 (0.0-2.0) 03/28/18 06:30 PT 9.8 SECONDS (9.4-12.5) 03/25/18 05:40 INR 0.85 03/25/18 05:40 APTT 26.9 Seconds (25.1-36.5) 03/25/18 05:40 pO2 192 mm/Hg (30-55) H 03/25/18 09:30 VBG pH 7.42 (7.32-7.43) 03/25/18 09:30 VBG pCO2 44.0 (40-60) 03/25/18 09:30 VBG HCO3 28.5 mmol/l (21-28) H 03/25/18 09:30 VBG Total CO2 29.9 mmol.L (22-28) H 03/25/18 09:30 VBG O2 Sat (Calc) 100.1 % (40-65) H 03/25/18 09:30 VBG Base Excess 3.4 mmol/L (0.0-2.0) H 03/25/18 09:30 VBG Potassium 3.8 mmol/L (3.6-5.2) 03/25/18 09:30 Sodium 138.0 mmol/L (132-148) 03/25/18 09:30 Chloride 102.0 mmol/L (98-107) 03/25/18 09:30 Glucose 253 mg/dl (75-110) H 03/25/18 09:30 Lactate 4.1 mmol/L (0.7-2.1) H* 03/25/18 09:30 FiO2 21.0 % 03/25/18 09:30 Crit Value Called To Erika 03/25/18 09:30 Crit Value Called By 03/25/18 09:30 Blood Gas Notified Time 950 03/25/18 09:30 Sodium 141 mmol/L (132-148) 03/28/18 06:30 Potassium 3.6 mmol/L (3.6-5.0) 03/28/18 06:30 Chloride 111 mmol/L (98-107) H 03/28/18 06:30 Carbon Dioxide 21 mmol/L (21-33) 03/28/18 06:30 Anion Gap 13 (10-20) 03/28/18 06:30 BUN 17 mg/dL (7-21) 03/28/18 06:30 Creatinine 0.8 mg/dl (0.8-1.5) 03/28/18 06:30 Est GFR ( Amer) > 60 03/28/18 06:30 Est GFR (Non-Af Amer) > 60 03/28/18 06:30 POC Glucose (mg/dL) 152 mg/dL (65-110) H 03/28/18 16:07 Random Glucose 166 mg/dL (70-110) H 03/28/18 06:30 Hemoglobin A1c 8.7 % (4.2-6.5) H 03/25/18 05:40 Calcium 9.3 mg/dL (8.4-10.5) 03/28/18 06:30 Phosphorus 2.2 mg/dL (2.5-4.5) L 03/26/18 05:30 Magnesium 1.9 mg/dL (1.7-2.2) 03/26/18 05:30 Total Bilirubin 1.2 mg/dL (0.2-1.3) 03/28/18 06:30 AST 75 U/L (17-59) H D 03/28/18 06:30 ALT 62 U/L (7-56) H 03/28/18 06:30 Alkaline Phosphatase 95 U/L (38-126) 03/28/18 06:30 Total Creatine Kinase 453 U/L (35-230) H 03/28/18 06:30 CK-MB (CK-2) 3.0 ng/mL (0.0-3.6) 03/28/18 06:30 CK-MB (CK-2) % 0.6 % (2.5-3.0) L 03/26/18 05:30 Troponin I 0.05 ng/mL D 03/25/18 11:50 Total Protein 7.6 g/dL (5.8-8.3) 03/28/18 06:30 Albumin 4.0 g/dL (3.0-4.8) 03/28/18 06:30 Globulin 3.6 gm/dL 03/28/18 06:30 Albumin/Globulin Ratio 1.1 (1.1-1.8) 03/28/18 06:30 Triglycerides 195 mg/dL (35-160) H 03/25/18 05:40 Cholesterol 237 mg/dL (130-200) H 03/25/18 05:40 LDL Cholesterol Direct 72 mg/dL (0-129) 03/25/18 05:40 HDL Cholesterol 132 mg/dL (29-60) H 03/25/18 05:40 Venous Blood Potassium 3.8 mmol/L (3.6-5.2) 03/25/18 09:30 Urine Color Yellow (YELLOW) 03/25/18 06:05 Urine Appearance Clear (CLEAR) 03/25/18 06:05 Urine pH 6.0 (4.7-8.0) 03/25/18 06:05 Ur Specific Conception >= 1.030 (1.005-1.035) 03/25/18 06:05 Urine Protein Trace mg/dL (<30 mg/dL) H 03/25/18 06:05 Urine Glucose (UA) >=1000 mg/dL (NEGATIVE) 03/25/18 06:05 Urine Ketones Trace mg/dL (NEGATIVE) H 03/25/18 06:05 Urine Blood Trace-intact (NEGATIVE) H 03/25/18 06:05 Urine Nitrate Negative (NEGATIVE) 03/25/18 06:05 Urine Bilirubin Negative (NEGATIVE) 03/25/18 06:05 Urine Urobilinogen 0.2 E.U./dL (<1 E.U./dL) 03/25/18 06:05 Ur Leukocyte Esterase Negative Haydee/uL (NEGATIVE) 03/25/18 06:05 Urine RBC 0 - 2 /hpf (0-2) 03/25/18 06:05 Urine WBC 0 - 2 /hpf (0-6) 03/25/18 06:05 Ur Epithelial Cells 0 - 2 /hpf (0-5) 03/25/18 06:05 Amorphous Sediment Moderate /hpf (NONE) 03/25/18 06:05 Urine Bacteria Occ /hpf (NONE) 03/25/18 06:05 Urine Opiates Screen Positive (NEGATIVE) H 03/25/18 06:05 Urine Methadone Screen Negative (NEGATIVE) 03/25/18 06:05 Ur Barbiturates Screen Negative (NEGATIVE) 03/25/18 06:05 Ur Phencyclidine Scrn Negative (NEGATIVE) 03/25/18 06:05 Ur Amphetamines Screen Negative (NEGATIVE) 03/25/18 06:05 U Benzodiazepines Scrn Negative (NEGATIVE) 03/25/18 06:05 U Oth Cocaine Metabols Negative (NEGATIVE) 03/25/18 06:05 U Cannabinoids Screen Negative (NEGATIVE) 03/25/18 06:05 B-Hydroxybutyrate 0.16 mM (0.02-0.27) 03/25/18 05:40 Hepatitis A IgM Ab Negative (NEGATIVE) 03/28/18 09:50 Hep Bs Antigen Negative (NEGATIVE) 03/28/18 09:50 Hep B Core IgM Ab Negative (NEGATIVE) 03/28/18 09:50 Hepatitis C Antibody Reactive (NEGATIVE) 03/28/18 09:50 HIV 1&2 Ag/Ab, 4th Gen Nonreactive (Nonreactive) 03/28/18 11:30 Blood Type B POSITIVE 03/25/18 06:49 Blood Type Confirm B POSITIVE 03/25/18 11:50 Antibody Screen Negative 03/25/18 06:49 BBK History Checked No verified bt 03/25/18 06:49 Attending/Attestation - Attestation I have personally seen and examined this patient.: Yes I have fully participated in the care of the patient.: Yes I have reviewed all pertinent clinical information, including history, physical exam and plan: Yes Notes (Text): 03/29/18 14:44 Attending note; Patient seen and examined with resident. Patient is alert and awake. Oriented to place and time. Not in any acute distress. Denies any headache or dizziness. Tolerating diet well. Patient is a 62-year-old male with past medical history significant for COPD, asthma, tobacco abuse, and hypertension who was present to the emergency room for altered mental status. 1. Toxic metabolic encephalopathy. Likely multifactorial. Improving. Likely secondary to DKA, seizure, lactic acidosis. Currently patient is alert and awake. Psychiatric evaluation appreciated. 2.Heroin abuse; S/P precedex drip overnight. Complete drug abuse cessation is strongly advised. 3. DKA; newly diagnosed diabetes. Of insulin drip. Started on metformin and Amaryl. Endocrinology evaluation appreciated. Diabetic education given. Dietary education given. 4. Possible withdrawal seizures ; MRI of the brain without acute changes. Video EEG results shows moderate nonspecific diffuse disturbance of cortical activity, this is in keeping with a diffuse hernandez matter dysfunction, the findings do not suggest a specific etiology. Lactic acidosis improved. Head CT showed no acute intracranial findings. CTA neck and brain showed unremarkable CT angiography of the brain, no significant stenosis. Neurology evaluation appreciated. No need for anti-epileptic treatment at this point. 5. Hypertension. Patient was on clonidine at home. Noncompliance with medication use. Started on metoprolol and Norvasc. Meds to beds given. 6. History of tobacco abuse. Patient counseled on cessation. Patient will be discharged home. Follow-up with PMD Dr. Taveras. 03/29/18 14:49
[2018-03-28 17:14] VITALS: RESP 32
--- NOTE | 2018-03-28 17:42 | CP.PCM.PN ---
Subjective - Date & Time of Evaluation Date of Evaluation: 03/28/18 Time of Evaluation: 17:42 - Subjective Subjective: Neurology Progress Note: Patient was seen and assessed at bedside in ICU. No acute events overnight noted. Patient denies any complaints at this time and 12 point ROS unremarkable. Objective - Vital Signs/Intake and Output Vital Signs (last 24 hours): Temp Pulse Resp BP Pulse Ox 98 F 82 32 H 170/104 H 97 03/28/18 06:00 03/28/18 17:11 03/28/18 17:11 03/28/18 17:01 03/28/18 17:01 Intake and Output: 03/28/18 03/28/18 06:59 18:59 Intake Total 250 Balance 250 - Medications Medications: Current Medications Acetaminophen (Tylenol 325mg Tab) 650 mg PO Q6H PRN PRN Reason: Fever >100.4 F Albuterol/Ipratropium (Duoneb 3 Mg/0.5 Mg (3 Ml) Ud) 3 ml IH Q2H PRN PRN Reason: Shortness of Breath Amlodipine Besylate (Norvasc) 10 mg PO DAILY JENNIFER Glimepiride (Amaryl) 4 mg PO ACBD [facility] Last Admin: 03/28/18 08:36 Dose: 4 mg Haloperidol Lactate (Haldol) 2 mg IVP Q6 PRN; Protocol PRN Reason: Agitation Heparin Sodium (Porcine) (Heparin) 5,000 units SC Q8 [facility]; Protocol Last Admin: 03/28/18 05:34 Dose: 5,000 units Hydralazine HCl (Apresoline) 10 mg IVP Q6 PRN PRN Reason: Systolic Blood Pressure Last Admin: 03/28/18 05:33 Dose: 10 mg Levetiracetam (Keppra 500mg Ivpb) 500 mg in 100 mls @ 400 mls/hr IVPB Q12 JENNIFER Last Admin: 03/28/18 10:12 Dose: 400 mls/hr Insulin Human Lispro (Humalog Med) 0 units SC ACHS [facility]; Protocol Last Admin: 03/28/18 08:10 Dose: 1 u Lorazepam (Ativan) 1 mg IVP Q2H PRN; Protocol PRN Reason: Anxiety Last Admin: 03/28/18 10:13 Dose: 1 mg Lorazepam (Ativan) 0.5 mg PO Q6 PRN; Protocol PRN Reason: Agitation Metformin HCl (Glucophage) 500 mg PO BID [facility] Last Admin: 03/28/18 10:02 Dose: 500 mg Metoprolol Tartrate (Lopressor) 50 mg PO BID [facility] - Labs Labs: 03/28/18 06:30 03/28/18 06:30 PT 9.8 SECONDS (9.4-12.5) 03/25/18 05:40 INR 0.85 03/25/18 05:40 APTT 26.9 Seconds (25.1-36.5) 03/25/18 05:40 - Constitutional Appears: Non-toxic, No Acute Distress - Head Exam Head Exam: ATRAUMATIC, NORMOCEPHALIC - Eye Exam Eye Exam: EOMI, Normal appearance, PERRL Pupil Exam: NORMAL ACCOMODATION - Neck Exam Neck Exam: Full ROM - Respiratory Exam Respiratory Exam: Clear to Ausculation Bilateral, NORMAL BREATHING PATTERN - Cardiovascular Exam Cardiovascular Exam: REGULAR RHYTHM - GI/Abdominal Exam GI & Abdominal Exam: Soft, Normal Bowel Sounds. absent: Tenderness - Neurological Exam Neurological Exam: Alert, Awake, CN II-XII Intact, Oriented x3, Reflexes Normal Neuro motor strength exam: Left Upper Extremity: 5, Right Upper Extremity: 5, Left Lower Extremity: 5, Right Lower Extremity: 5 - Psychiatric Exam Psychiatric exam: Normal Affect, Normal Mood - Skin Skin Exam: Dry, Warm Assessment and Plan - Assessment and Plan (Free Text) Assessment: 62 year old male with a past medical history significant for COPD, Asthma, HTN and Tobacco Use Disorder who presented with seizure like activity. Plan: -Seizure activity likely secondary to DKA -CT Head showed age appropriate atrophy and chronic microvascular changes -CTA Head/Neck unremarkable -MRI Brain showed chronic lacunar infarcts in left thalamus and right jovan -Video EEG showed no seizure activity -Discontinue Keppra -Further recommendations as per Dr. Hawkins Patient seen and case discussed with attending, Dr. Hawkins. Vincent Esparza PGY2
[2018-03-28 18:03] LABS: HEPATITIS C ANTIBODY REACTIVE (NEGATIVE)
[2018-03-28 18:10] VITALS: TEMP 98.2
[2018-03-28 18:19] VITALS: BP 180/100; PULSE 87
--- NOTE | 2018-03-28 23:57 | PN ---
DATE: 03/28/2018 ENDOCRINOLOGY FOLLOWUP NOTE LOCATION: ICU room 129, bed 4. This is a 62-year-old male with recent uncontrolled type 2 insulin-requiring diabetes, presenting here with an apparent recent seizure disorder and currently undergoing neurological workup and management. His glycemic levels are fluctuating with glucose levels overnight ranging from 211 to 214 mg/dL. His bedtime glucose was 204 mg/dL. His chemistries showed a BUN of 13, sodium 140, potassium 4.3, chloride 108, CO2 of 25, glucose 210, and creatinine 0.8. So at this time, we will continue the same dual oral hypoglycemic therapy as given with metformin given as 500 mg b.i.d. and glimepiride given as 4 mg b.i.d. as ordered. We will obtain serial chemistries and supplement accordingly as needed. We will follow. Arianne Martinez MD
--- NOTE | 2018-03-29 16:45 | PQF ---
PROVIDER RESPONSE TEXT: patient has mild intermittent asthma. REVIEWER QUERY TEXT: Asthma Specificity and Type Asthma is documented in the Medical Record. Please specify the type and severity of asthma and indic ate if this is associated with exacerbation or status asthmaticus. Such as: -- Mild intermittent -- Mild persistent -- Moderate persistent -- Severe persistent -- Exercise induced bronchospasm -- Cough variant asthma -- Other, please specify The patient's Clinical Indicators include: Please see query. Thank you. Query created by: Shereen Morse on 03/29/2018 3:58 PM Electronically signed by: Bri Yao MD 03/29/2018 4:42 PM
== END 2018-03-28 19:20 | disposition home or self-care (01) | DRG 566 ==
LOC: ED 05:06 → ERH 06:43 → CCU 07:58
PROVIDERS: ADMIT Hospitalist; ATTEND Internal Medicine
DX: E11.00 Type 2 diabetes mellitus with hyperosmolarity without nonketotic hyperglycemic-hyperosmolar coma (NKHHC) (principal); G92 Toxic encephalopathy; N17.9 Acute kidney failure, unspecified; E86.0 Dehydration; F11.20 Opioid dependence, uncomplicated; J44.9 Chronic obstructive pulmonary disease, unspecified; G40.909 Epilepsy, unspecified, not intractable, without status epilepticus; I10 Essential (primary) hypertension; E11.10 Type 2 diabetes mellitus with ketoacidosis without coma; J45.20 Mild intermittent asthma, uncomplicated; E78.1 Pure hyperglyceridemia; E78.5 Hyperlipidemia, unspecified; F10.10 Alcohol abuse, uncomplicated; F17.200 Nicotine dependence, unspecified, uncomplicated; Z78.1 Physical restraint status; Z79.4 Long term (current) use of insulin; Z91.14 Patient's other noncompliance with medication regimen